=== PATIENT | female | born 1975 | race Caucasian/White ===

== ENCOUNTER → 2019-06-20 | Outpatient (CLI) | payer OTHER ==
[~2019-06-20] MED LIST: BUPROPION XL300 MG PO; FLEXERIL PO; GLUCOPHAGE500 MG PO; GLUCOSAMINE HC500 MG PO; GLUCOTROL XL2.5 MG PO; HYDROCODON-ACE1 EAC7 PO; IBUPROFEN 200200 M1 PO; LIDOPATCH1 EACH TOP; NAPROSYN250 MG PO; NEURONTIN 300300 M1 PO; NEURONTIN 300M300 M2 PO; NORVASC5 MG PO; TRAMADOL 50 MG50 MG PO; VENTOLIN HFA 1818 GM INH; WELLBUTRIN 75 M75 M1 PO
[2019-06-21 23:07] LABS: HEPATITIS B SURFACE AG Negative (Negative)
[2019-06-22 11:11] LABS: HCV QUANT BY PCR HCV Not Detected IU/mL (())
== END ==
LOC: M.LAB 09:16
PROVIDERS: Internal Medicine Gastroenterology
DX: B19.10 Unspecified viral hepatitis B without hepatic coma (principal); B19.20 Unspecified viral hepatitis C without hepatic coma

== ENCOUNTER 2019-07-09 12:52 | Inpatient (IN) | payer OTHER ==
[~2019-07-09] VITALS: Ht 172.7 cm; Wt 99.3 kg
--- NOTE | ~2019-07-09 | CON ---
[address] [address] CONSULTATION Name: ZELAYAJENI Shania Room: [address] IN M.R.#: [id number] Admission: 07/09/19 Attend Phys: Sharon Ford MD Discharge: Date of : 73 Report #: [id number] THIS REPORT FOR: //name// CC: Karl Ford DATE OF SERVICE: 07/15/2019 CHIEF COMPLAINT: Postoperative visit for amputation of left fourth toe with open wound. HISTORY OF PRESENT ILLNESS: Surgical cultures grew group B streptococcus, she is on vancomycin and ceftriaxone. Surgical pathology shows osteomyelitis of left fourth toe with clear margin. Arterial Doppler study showed triphasic waveforms to the left lower extremity without focal velocity elevation to suggest stenosis. Pain is decreased and controlled. She is partial weightbearing in a surgical shoe using a walker. She has remained afebrile, good appetite. Denies nausea or malaise. LABORATORY DATA: WBC 7.6, RBC 3.34, hemoglobin 11.2, hematocrit 30.5, platelets 270. BUN 23, creatinine 1.1, glucose 127. Albumin 2.1. Hemoglobin A1c 10.2. PHYSICAL EXAMINATION: Temperature 98.0, pulse 85, respirations 18, blood pressure 136/61. The nurse changed her bandage today, which is currently dry and clean with no bleed through or drainage. I reviewed the photograph taken and it shows red granular base with minimal slough to the distal margin. Decreased inflammation with no pallor, cyanosis or signs of acute vascular embarrassment. The patient has negative Homans' or Saucedo sign to either extremity with no popliteal tenderness, bilateral. IMPRESSION: Osteomyelitis, left fourth toe with clear resection margins and open postoperative wound, type 2 diabetes mellitus with peripheral neuropathy. PLAN: I would like the patient to be discharged pending finalization of home antibiotics and home health. I will follow up with her next Tuesday afternoon at [facility]. In the interim, she is to have her bandaged changed 3 times a week with Aquacel Ag and covered with 4 x 4 Kerlix and Chilango wrap. She is to remain partial weightbearing to the foot in a surgical shoe with walker assistance. By: 1848 [id number] Monae DPM /aaron
--- NOTE | ~2019-07-09 | CON ---
[address] [address] CONSULTATION Name: JENI ZELAYA Room: [address] IN .R.#: [id number] Admission: 07/09/19 Attend Phys: Sharon Ford MD Discharge: Date of : 73 Report #: [id number] THIS REPORT FOR: //name// CC: Karl Ford DATE OF SERVICE: 07/13/2019 CHIEF COMPLAINT: Status post amputation, left fourth toe at MTP joint with the open wound. Surgical cultures growing group B Streptococcus. She is on parenteral ceftriaxone and vancomycin with good tolerance. She has been afebrile, improved; decreased pain on oral tramadol and hydrocodone. She is partial weightbearing in a surgical shoe using a walker. Her bandage was changed today by the nurse and cleansed and repacked with Aquacel Ag and gauze. I spoke with her and she is resting comfortably. I will follow up with her tomorrow and perform a dressing change. By: 1648 [id number] Monae DPM /aaron
--- NOTE | ~2019-07-09 | CON ---
[address] [address] CONSULTATION Name: ZELAYAJENI L Room: [address] IN M.R.#: [id number] Admission: 07/09/19 Attend Phys: Sharon Ford MD Discharge: Date of : 73 Report #: [id number] THIS REPORT FOR: //name// CC: Karl Ford CHIEF COMPLAINT: Postoperative day #1 for amputation of left fourth toe due to gangrene and osteomyelitis. The wound was packed open with pending surgical soft tissue cultures and pathology. She is on parenteral vancomycin and ceftriaxone. She has been afebrile, relates moderate pain to the extremity. LABORATORY DATA: WBC 10.0, RBC 3.64, hemoglobin 12.3, hematocrit 33.6, platelets 241. BUN 15, creatinine 1.1. PHYSICAL EXAMINATION: Postoperative wound has red healthy granulation with minimal slough. The distal fourth metatarsal is visible with no necrosis or signs of bone infection. The inflammation of the dorsal and plantar foot is receding with no signs of acute vascular embarrassment. The left foot has palpable pedal pulses. IMPRESSION: Osteomyelitis, left fourth toe with postoperative wound, type 2 diabetes mellitus, resolving cellulitis. PLAN: The wound was lavaged with wound cleanser, dried and packed with Aquacel Ag and covered with gauze and Chilango bandage. The patient may bear partial weight to the foot in a surgical shoe with assistive device. Minimize ambulation, elevate foot, maximize glycemic control. Awaiting surgical cultures. By: 1617 [id number] Monae DPM /nt
[~2019-07-09 12:52] MED LIST changes: -BUPROPION XL300 MG PO; -GLUCOPHAGE500 MG PO; -GLUCOTROL XL2.5 MG PO; -HYDROCODON-ACE1 EAC7 PO; -LIDOPATCH1 EACH TOP; -NEURONTIN 300300 M1 PO; -NEURONTIN 300M300 M2 PO; -NORVASC5 MG PO; -TRAMADOL 50 MG50 MG PO; -VENTOLIN HFA 1818 GM INH; -WELLBUTRIN 75 M75 M1 PO
[2019-07-09 13:00] VITALS: BP 169/97
[2019-07-09] MEDS ORDERED: VENTOLIN HFA 1818 GM INH (13:03)
[2019-07-09] MEDS ORDERED: NEURONTIN 300M300 M2 PO (13:03)
[2019-07-09] MEDS ORDERED: NORVASC5 MG PO (13:03)
[2019-07-09 14:05] LABS: APTT 27.6 Seconds (25.0-31.3); CALCIUM 8.8 mg/dL (8.5-10.1); CREATININE 1.3 mg/dL (0.6-1.3); PROTIME 9.8 Seconds (9.20-11.50)
[2019-07-09 14:09] LABS: ALBUMIN 2.7 g/dL (3.4-5.0); TOTAL BILIRUBIN 0.9 mg/dL (<0.1-1.0); TOTAL PROTEIN 7.3 g/dL (6.4-8.2)
[2019-07-09 14:21] LABS: ABSOLUTE BASOPHILS 0.2 thou/uL (0.0-0.2); ABSOLUTE EOSINOPHILS 0.1 thou/uL (0.0-0.7); ABSOLUTE LYMPHOCYTES 1.5 thou/uL (0.8-5.3); ABSOLUTE MONOCYTES 1.2 thou/uL (0.0-1.2); ABSOLUTE NEUTROPHILS 10.4 thou/uL (1.6-8.1); BASOPHILS 1.2 %; EOSINOPHILS 0.9 %; HEMATOCRIT 39.3 % (37.0-47.0); HEMOGLOBIN 14.1 gm/dL (12.0-15.0); LYMPHOCYTES 11.4 %; MCH 33.5 pg (26.0-34.0); MCHC 35.9 g/dL (28.0-37.0); MCV 93.4 fL (80.0-100.0); MONOCYTES 8.6 %; MPV 8.4 fl. (7.2-11.1); NUCLEATED RBCS 0 /100WBC; PLATELET COUNT* 271 thou/uL (150-400); POLYS 77.9 %; RBC 4.21 mil/uL (4.20-5.00); RDW-CV 12.1 % (10.5-14.5); WBC 13.4 thou/uL (4.0-11.0)
[2019-07-09 16:28] VITALS: BP 154/68
[2019-07-09 17:00] VITALS: BP 183/93
[2019-07-09] MEDS ORDERED: WELLBUTRIN 75 M75 M1 PO (17:36)
--- NOTE | 2019-07-09 17:51 | NUR ---
ASSESSMENT COMPLETE. PT ADMITTED WITH CELLULITIS TO LEFT 4TH TOE/FOOT. PT IS ALERT AND ORIENTED X4. IV ABX GIVEN ORDERED. DR WATSON, WOUND, AND INFECTIOUS DISEASES CONSULTED. PT IS UP STANDBY ASSIST. IV FLUIDS INFUSING. SEE ASSESSMENT AND VITALS FOR OTHER DETAILS. ACCU CHECK ACHS. CALL LIGHT WITHIN REACH, WILL CONTINUE PLAN OF CARE
[2019-07-09 21:00] VITALS: BP 165/79
[2019-07-10 04:45] LABS: HEMATOCRIT 33.2 % (37.0-47.0); MCH 33.4 pg (26.0-34.0); MCHC 35.7 g/dL (28.0-37.0); MCV 93.5 fL (80.0-100.0); MPV 8.5 fl. (7.2-11.1); RBC 3.55 mil/uL (4.20-5.00); RDW-CV 12.2 % (10.5-14.5); WBC 9.2 thou/uL (4.0-11.0)
[2019-07-10 04:46] LABS: HEMOGLOBIN 11.9 gm/dL (12.0-15.0)
[2019-07-10 05:02] LABS: CALCIUM 7.8 mg/dL (8.5-10.1); POTASSIUM 3.7 mmol/L (3.5-5.1); TOTAL BILIRUBIN 0.5 mg/dL (<0.1-1.0); TOTAL PROTEIN 5.9 g/dL (6.4-8.2)
--- NOTE | 2019-07-10 06:14 | NUR ---
PATIENT SLEPT PART OF THE NIGHT. IV FLUIDS AND ANTIBIOTICS WERE GIVEN ORDERED. PATIENT WAS GIVEN PAIN MEDICINE THREE TIMES THIS SHIFT WITH SOME RELIEF. WILL CONTINUE TO MONITOR.
[2019-07-10 07:50] VITALS: BP 144/69
--- NOTE | 2019-07-10 10:32 | NUR ---
WOUND CARE NOTE: CONSULT RECEIVED FOR FOOT CELLULITIS. PATIENT PRESENTS WITH THE 4TH TOE ON THE LEFT FOOT EDEMATOUS AND PURPLE IN DISCOLORATION. TWO ULCERATIONS NOTED, MEDIALLY AND LATERALLY. FOUL ODOR NOTED. WOUNDS DRAINING BROWN/SEROUS DRAINAGE. GREGORIO-WOUND SKIN IS MACERATED. INFLAMMATION NOTED EXTENDING TOWARDS THE MIDFOOT BETWEEN THE 2-4TH METATARSAL HEADS ON THE DORSAL ASPECT. CLEANSED TOE. DRIED DRAINAGE NOTED TO THE 5TH AND THE 3RD TOES, BUT NO ULCERATIONS DETECTED. WOUNDS WERE NOT MEASURED PODIATRY PLANS TO AMPUTATE THE 4TH DIGIT TODAY. PATIENT WAS SEEN WITH PODIATRY AND ID. APPLIED DRY GAUZE AT THIS TIME.
[2019-07-10 14:28] VITALS: BP 144/69
--- NOTE | 2019-07-10 16:36 | NUR ---
SW met with pt to complete initial assessment, introduce self, and SW role. Pt alert, oriented, emotional. Pt lives at home with her significant other. Pt to discuss FMLA with her employer and possibly SW to assist with discussing completion with a doctor. SW to continue to follow to assist with safe dc planning.
--- NOTE | 2019-07-10 16:44 | NUR ---
ASSUMMED CARE OF PT AT 1045, PT ALERT AND ORIENTED, COMPLAINS OF PAIN IN LEFT FOOT, MEDICATED PER ORDER, ENCOURAGED PT TO ELEVATE LEFT LEG, PT ANXIOUS ABOUT SURGERY, ASKING MANY QUESTIONS, WANTS TO SPEAK WITH SURGEON PRIOR TO SURGERY, PT INFORMED SHE COULD TALK TO HIM IN THE PRE OP AREA, PT NPO STATUS, IV PATENT IN LEFT FA, PT UP TO BATHROOM PER WALKER, DRESSING TO LEFT FOOT DRY AND INTACT, HOURLY ROUNDING COMPLETE, TO SURGERY PER BED AT 1645.
[2019-07-10 16:59] VITALS: BP 147/68
[2019-07-10 23:41] VITALS: BP 136/66
[2019-07-11 02:06] LABS: GLYCOHEMOGLOBIN (HGB A1C) 10.2 % (4.8-5.6)
[2019-07-11 04:00] VITALS: BP 179/88
--- NOTE | 2019-07-11 05:59 | NUR ---
PT SLEPT FAIRLY WELL OVERNIGHT. TOLERATED DIET AT HS WITHOUT N/V. BULKY SURGICAL DRSG CDI TO LEFT FOOT. PT UP WITH WALKER AND SBA TO BSC TO VOID OVERNIGHT. ACCUCHECK 238, INSULIN GIVEN ORDERED. LFA IVF INFUSING PER PUMP, VANC GIVEN ORDERED-TO HAVE VANC TROUGH DRAWN 0730 ALONG WITH AM LABS. IV PAIN MED GIVEN FOR CO PAIN X1 THIS SHIFT WITH GOOD RESULT. TOES VISIBLE PINK AND WARM, +MOVEMENT AND GOOD CAP REFILL. ABLE TO USE CALL LITE AND MAKE NEEDS KNOWN, CALL LITE IN EASY REACH.
[2019-07-11 07:40] VITALS: BP 154/78
[2019-07-11 08:08] LABS: HEMATOCRIT 33.6 % (37.0-47.0); HEMOGLOBIN 12.3 gm/dL (12.0-15.0); MCH 33.9 pg (26.0-34.0); MCHC 36.8 g/dL (28.0-37.0); MCV 92.2 fL (80.0-100.0); RBC 3.64 mil/uL (4.20-5.00); RDW-CV 11.9 % (10.5-14.5)
[2019-07-11 08:18] LABS: CALCIUM 8.1 mg/dL (8.5-10.1); MAGNESIUM 1.7 mg/dL (1.8-2.4); POTASSIUM 3.9 mmol/L (3.5-5.1)
--- NOTE | 2019-07-11 11:21 | CON ---
[address] [address] CONSULTATION Name: ZELAYAJENI L Room: [address] IN M.R.#: [id number] Admission: 07/09/19 Attend Phys: Sharon Ford MD Discharge: Date of : 73 Report #: [id number] THIS REPORT FOR: //name// CC: Karl Ford DATE OF SERVICE: 07/10/2019 INFECTIOUS DISEASE CONSULTATION ATTENDING PHYSICIAN: Dr. Ford. REASON FOR EVALUATION: Left fourth toe deep seated infection, suspected osteomyelitis. HISTORY OF PRESENT ILLNESS: Chart reviewed, patient examined. This is a 43-year-old woman with history of diabetes mellitus type 2, non-insulin requiring, also polycystic ovarian syndrome, who was admitted through the Emergency Room with complaints of progressive change in color involving her fourth toe, left foot, had several week history; however, worsened over the course of the last 24 hours prior to her admission. She is experiencing fevers and chills. She notes her blood sugars have been quite elevated and did note some drainage with some malodor as well. Denied any antecedent injury, underwent evaluation. Initial blood sugar was 371. Lactic acid 1.2. Plain film concerned about some minimal gas in the soft tissue, no overt bony erosion or destruction. White count of 13.4. Venous Dopplers show no evidence of deep venous thrombosis. Arterial Doppler was otherwise unremarkable. Blood cultures are sterile thus far. She is not encephalopathic. Empirically started on therapy with vancomycin and ceftriaxone. She is tentatively planned for surgery later today with toe amputation. ALLERGIES: None known. CURRENT MEDICATIONS: Include amlodipine, ceftriaxone, glipizide, vancomycin, bupropion, gabapentin, insulin, p.r.n. analgesics and antiemetics. PAST MEDICAL HISTORY: As described above. Diabetes mellitus, history of polycystic ovarian syndrome, and previous history of cervical cancer x 2. SOCIAL HISTORY: Smokes 3/4 of a pack of cigarettes on a daily basis. Use of marijuana. Occasional ethanol. FAMILY HISTORY: Noncontributory. REVIEW OF SYSTEMS: Otherwise, unremarkable 10-point review of system with [place] [address] CONSULTATION Name: JENI ZELAYA Room: [address]#: [id number] Admission: 07/09/19 Attend Phys: Sharon Ford MD Discharge: Date of : 73 Report #: [id number] PHYSICAL EXAMINATION: GENERAL: She is alert. She is in mild distress at this point. She is lucid. VITAL SIGNS: T-max 100, more recently 98.6, pulse 94, respirations 16, blood pressure 144/69. SKIN: Warm, dry. No rashes. HEENT: Normocephalic. Extraocular muscles intact. NECK: Supple. LUNGS: Somewhat diminished, otherwise clear breath sounds. HEART: Borderline tachycardic, regular. I do not appreciate a murmur. ABDOMEN: Soft, nontender, nondistended. EXTREMITIES: Notable for fourth left toe hemorrhagic changes. There is malodor associated with it, appears to be wet gangrene consistent. GENITOURNARY: Deferred. RECTAL: Deferred. LABORATORY DATA: As described above. Electrolytes: Sodium 134, potassium is 3.7, chloride 102, bicarbonate 21, anion gap of 11, BUN and creatinine 13 and 1.0, glucose of 207. Albumin of 2.0, total protein 5.9. LFTs unremarkable. Estimated GFR 60, prealbumin of 12.7. CBC: White count of 9.2, H and H 11.9 and 33.2, platelets of 227. Imaging studies as noted above. ASSESSMENT: Left fourth toe gangrene. No evidence at this point of vascular insufficiency, cannot entirely exclude any embolic event, but I suspect this is more typical of a polymicrobial infection, initiated in superficial sites. Agree with combination therapy. PLAN: At this point, plan for surgery seems a reasonable approach. We will await culture results. Follow up postop. Was encouraged to discontinue her smoking, improve blood sugar control, and optimize her nutritional status. <ELECTRONICALLY SIGNED> By: Chintan Gomez MD 07/11/19 1121 0944 [id number] Gomez MD /nt
--- NOTE | 2019-07-11 13:53 | CON ---
[address] [address] CONSULTATION Name: NATHALIEJENI L Room: [address] IN M.R.#: [id number] Admission: 07/09/19 Attend Phys: Sharon Ford MD Discharge: Date of : 73 Report #: [id number] THIS REPORT FOR: //name// CC: Karl Ford DATE OF SERVICE: 07/10/2019 CHIEF COMPLAINT: The patient admitted for worsening infection to the left fourth toe, complicated by type 2 diabetes mellitus. She denies kate injury, but relates a blister to the lateral aspect of the toe, which she treated with a Band-Aid and then applied compression stockings for edema control. She thinks the combination of the Band-Aid and stockings may have exacerbated the blister. She has had some low-grade fevers. Denies nausea, malaise or vomiting. She has not sought outside medical treatment for this condition, and she has been placed on Neosporin and gauze or Band-Aid to the toe. She relates moderate pain to the area. She denies history of vascular surgery or intervention, currently on parenteral ceftriaxone and vancomycin with good tolerance. She has been afebrile since admission. Foot radiographs negative for bone destruction, although there is a questionable small amount of gas in the soft tissue of the fourth toe. Upon my inspection, possible transverse fracture through the proximal phalange with no displacement. Noninvasive arterial Doppler shows normal triphasic waveforms to the left lower extremity with no focal velocity elevation. LABORATORY DATA: WBC 9.2, RBC 3.55, hemoglobin 11.9, hematocrit 33.2, platelets 227. BUN 13, creatinine 1.0, glucose 207, albumin 2.0. PHYSICAL EXAMINATION: Left fourth toe is swollen and inflamed and necrotic with odor and drainage emanating from the wound at the proximal medial base of the toe with localized inflammation consistent with cellulitis. No lesions noted to the adjacent third or fifth toes. Palpable dorsalis pedis and posterior tibial pulse to the left foot. +3 nonpitting edema to the left extremity. No popliteal adenopathy or calf pain. IMPRESSION: Likely osteomyelitis with deep tissue infection, left fourth toe. PLAN: I recommend amputation of the left fourth toe. Discussed with Dr. Chintan Gomez, Dr. Ford and the wound nurse. We will keep the patient n.p.o. and plan surgical amputation later this afternoon. She is scheduled for an MRI today. <ELECTRONICALLY SIGNED> By: Robin Monae DPM 07/11/19 1353 0915 [id number] Monae DPM /aaron
--- NOTE | 2019-07-11 13:53 | OP ---
[address] [address] OPERATIVE REPORT Name: NATHALIEJENI L Room: [address] IN M.R.#: [id number] Admission: 07/09/19 Attend Phys: Sharon Ford MD Discharge: Date of : 73 Report #: [id number] THIS REPORT FOR: //name// CC: Karl Ford DATE OF SERVICE: 07/10/2019 SURGEON: Robin Monae DPM PREOPERATIVE DIAGNOSIS: Osteomyelitis with gangrene, left fourth toe. PROCEDURES PERFORMED: 1. Amputation, left fourth toe without a primary closure. 2. Incision and drainage, left foot. 3. Wound debridement, joint muscle and tendon level, left foot. ANESTHESIA: General LMA. INJECTABLES: 30 mL of a 1:1 mixture of 0.5% Marcaine plain and 1% lidocaine plain. HEMOSTASIS: Left ankle pneumatic tourniquet at 250 mmHg. SPECIMENS: Left fourth toe. CULTURES: Soft tissue, left fourth toe, aerobic and anaerobic. ESTIMATED BLOOD LOSS: Minimal. COMPLICATIONS: None. DESCRIPTION OF PROCEDURE: The patient was brought to the OR and placed on the table supine with induction of general LMA anesthesia. A well-padded left ankle pneumatic tourniquet was placed. A local anesthetic block was given, and extremity prepped and draped aseptically. The tourniquet was inflated and a #15 blade was used to create a circumferential incision around the base of the left fourth toe, which was disarticulated from the metatarsophalangeal joint. The toe was brown, soft and necrotic with malodor and serous drainage on her bandage. Once the toe was disarticulated, there was infected tissue surrounding the metatarsophalangeal joint and distal fourth metatarsal head. The metatarsal head had a normal cartilage appearance with no necrosis or signs of bone infection. I debrided the surrounding soft tissue with Metzenbaum scissors to remove flexor and extensor tendons, subcutaneous fat and joint capsule. Electrocautery was used for hemostasis. The metatarsal was not debrided. The wound was flushed with sterile saline with bacitracin irrigant [place] [address] OPERATIVE REPORT Name: JENI ZELAYA Shania Room: [address]#: [id number] Admission: 07/09/19 Attend Phys: Sharon Ford MD Discharge: Date of : 73 Report #: [id number] wound was packed with Aquacel Ag and covered with more Aquacel Ag, fluffs, ABDs and Kerlix gauze. The tourniquet was deflated and the patient left the OR with no complications. <ELECTRONICALLY SIGNED> By: Robin Monae DPM 07/11/19 1353 0731 [id number] Monae DPM /aaron
[2019-07-11 14:01] LABS: CALCIUM 7.9 mg/dL (8.5-10.1); CREATININE 1.1 mg/dL (0.6-1.3)
[2019-07-11 16:00] VITALS: BP 148/74
--- NOTE | 2019-07-11 17:19 | NUR ---
PT A&OX4 VSS. PT RESTS IN BED WITH CALL LIGHT IN REACH. HYDRCODONE ADMINISTERED TO ADDRESS PT C/O PAIN. SURGICAL DRESSING CHANGED BY DR Randolph WATSON. PARTIAL WEIGHT BEARING TO L FOOT. PT TO WEAR SX SHOE WHEN AMBULATING. IV TO LFA DC'D D/T INFILTRATION. NEW IV STARTED TO L HAND, LINE PATENT AND SALINE LOCKED. PT/OT ORDERED TO EVAL AND TREAT. MGNESIUM ADMINISTERED BID TO ADDRESS LAB VALUES.
[2019-07-11 19:45] VITALS: BP 138/64
[2019-07-12 05:15] LABS: HEMATOCRIT 31.7 % (37.0-47.0); HEMOGLOBIN 11.7 gm/dL (12.0-15.0); MCH 33.7 pg (26.0-34.0); MCHC 36.8 g/dL (28.0-37.0); MCV 91.6 fL (80.0-100.0); MPV 8.3 fl. (7.2-11.1); RBC 3.46 mil/uL (4.20-5.00); RDW-CV 12.4 % (10.5-14.5); WBC 9.7 thou/uL (4.0-11.0)
[2019-07-12 05:30] LABS: CALCIUM 8.1 mg/dL (8.5-10.1); MAGNESIUM 1.8 mg/dL (1.8-2.4); POTASSIUM 3.4 mmol/L (3.5-5.1); TOTAL BILIRUBIN 0.5 mg/dL (<0.1-1.0)
--- NOTE | 2019-07-12 06:59 | NUR ---
PT SLEPT WELL OVERNIGHT. RECEIVING PO PAIN MEDS FOR CO L FOOT PAIN WITH GOOD RELIEF ALTERNATING HYDROCODONE AND TRAMADOL. LHAND SL, ABX GIVEN ORDERED. UP WITH ASSIST TO BSC TO VOID, PARTIAL WB TO L FOOT. AM LABS DRAWN. DRSG TO L FOOT CDI. HS ACCUCHECK 192, INSULIN GIVEN WITH SNACK. K 3.4 THIS MORNING, 40MEQ GIVEN PER PROTOCOL. ABLE TO USE CALL LITE AND MAKE NEEDS KNOWN, CALL LITE IN EASY REACH.
[2019-07-12 08:30] VITALS: BP 143/76
[2019-07-12 15:30] VITALS: BP 139/81
[2019-07-12 20:30] VITALS: BP 144/77
--- NOTE | 2019-07-12 20:31 | NUR ---
PATIENT REMAINED ALERT AND ORIENTED THROUGHOUT SHIFT. PATIENT USING WALKER, ASSISTANCE, AND GAIT BELT AND NOT BEARING WEIGHT TO L FOOT TOES WHEN UP TO COMMODE OR CHAIR. ALL SAFETY MEASURES MAINTAINED. PATIENT DENIES FURTHER NEEDS AT THIS TIME.
--- NOTE | 2019-07-13 05:20 | NUR ---
PATIENT SLEPT MOST OF THE NIGHT. DRESSING TO R FOOT REMAINS INTACT. IV ANTIBIOTICS WERE GIVEN ORDERED. PAIN MEDS WERE GIVEN NEEDED. WILL CONTINUE TO MONITOR.
[2019-07-13 08:00] VITALS: BP 139/79
--- NOTE | 2019-07-13 11:56 | NUR ---
SW met with pt to follow up on any assistance with FMLA and discuss possible needs at dc such as IV abx, knee scooter, HH services. Pt working with employer and with Dr Monae's office regarding FMLA. Pt plans to discuss DME agencies and HH agencies with her family and friends and then provide pt preferences to SW/CM. SW to continue to follow to assist with safe dc planning.
--- NOTE | 2019-07-13 14:43 | NUR ---
RIGHT BASILOIC VESSELL ACCESSED FOR SINGLE LUMEN PICC. LINE PRE-TRIMMED TO 41 CM AND ADVANCED TO THE ZERO YUE WITH NO RESISTANCE MET. UPPER ARM CIRCUMFERENCE ABOVE INSERTION SITE = 12". SHERLOCK AND 3CG COMNFIRMATION OF TIP TERMINATION AT THE CAVCOATRIAL JUNCTION APPRECIATED. STYLET REMOVED, LINE FLUSHED AND INSERTION SITE DRESSED. REPORT GIVEN TO Art LYNN RN.
[2019-07-13 16:00] VITALS: BP 148/81
[2019-07-13 19:45] VITALS: BP 148/75
--- NOTE | 2019-07-13 20:12 | NUR ---
Patient remained alert and oriented throughout shift. Patient ambulating with stand by assitance, walker,and gait belt. Patient tolerating PICC line well. All safety measures maintained. Patient denies further needs at this time.
--- NOTE | 2019-07-14 04:24 | NUR ---
ASSUMED CARE FROM DAY SHIFT PT RESTING IN BED PAIN CONTROLLED WITH PO MEEICATION STATED BY PT, LEFT FOOT WITH DRY DRESING AND YANETH WRAP , PT UP TO BSC WITH ASSITANCE TOLERATING WELL. RESTED WELL THROUGHOUT HOURLY ROUNDS WILL CONTINUE WITH CURRENT PLAN OF CARE, BED ALARM ON FOR SAFETY.
[2019-07-14 04:39] LABS: HEMATOCRIT 30.5 % (37.0-47.0); HEMOGLOBIN 11.2 gm/dL (12.0-15.0); MCH 33.4 pg (26.0-34.0); MCHC 36.6 g/dL (28.0-37.0); MCV 91.4 fL (80.0-100.0); MPV 7.6 fl. (7.2-11.1); RBC 3.34 mil/uL (4.20-5.00); RDW-CV 12.2 % (10.5-14.5); WBC 7.6 thou/uL (4.0-11.0)
[2019-07-14 05:32] LABS: ALBUMIN 2.1 g/dL (3.4-5.0); CALCIUM 8.7 mg/dL (8.5-10.1); CREATININE 1.1 mg/dL (0.6-1.3); MAGNESIUM 1.9 mg/dL (1.8-2.4); POTASSIUM 3.5 mmol/L (3.5-5.1); TOTAL BILIRUBIN 0.2 mg/dL (<0.1-1.0); TOTAL PROTEIN 6.3 g/dL (6.4-8.2)
[2019-07-14 07:20] VITALS: BP 134/69
--- NOTE | 2019-07-14 10:07 | PATH ---
[address] [address] PATHOLOGY RPT PROCEDURE Name: JENI ZELAYA Room: [address] IN M.R.#: [id number] Admission: 07/09/19 Date of : 73 Discharge: Report #: [id number] Path Case #: [id number] [facility] Accession Number: [id number] . 01 Material submitted: . toe - LEFT 4TH TOE. Modifiers: left, fourth . 01 Clinical history: . Osteomyelitis left foot . 02 Diagnosis: Toe, left fourth, amputation: - Skin with focal ulceration and necrosis. - Underlying bone with acute osteomyelitis. - Margin of excision without evidence of acute osteomyelitis. . (SKM:mml; 07/13/2019) QLM 07/13/2019 1333 Local . 02 Electronically signed: . Tima Man MD, Pathologist NPI- [id number] . 01 Gross description: . The specimen is received in formalin, labeled "Jeni Zelaya, left fourth toe". Received is an amputated digit measuring 4.8 x 2.5 x 2.4 cm in greatest dimensions. The bone margin is smooth and concave in appearance, consistent with disarticulation. The bone and soft tissue margins are inked black. The nail is present and it has a pale woods slightly thickened appearance. The dorsal aspect of the specimen proximal to the nail displays a poorly circumscribed, irregular in contour, necrotic-appearing and timmons-woods lesion measuring 2.8 x 1.8 cm, which grossly abuts the soft tissue margin. A full-thickness longitudinal cross-section is submitted from proximal to distal aspects in cassettes A1 through A3, following decalcification. (CAA; 07/12/2019) QAC/QA 07/13/2019 1330 Local . 02 Pathologist provided ICD-10: L97.529, I96, M86.172 . 02 CPT . 296842, 979735 Specimen Comment: A courtesy copy of this report has been sent to [phone] Specimen Comment: [phone], Specimen Comment: Report sent to ,DR SAXENA / DR GOMEZ Performed at: [address] [place] [address] PATHOLOGY RPT PROCEDURE Name: JENI ZELAYA Room: [address] IN ..#: [id number] Admission: 07/09/19 Date of : 73 Discharge: Report #: [id number] Path Case #: [id number] [facility] [place] [address], [place], [place] [id number] MD Kwame Reid MD Phone: [phone] Performed at: 02 [facility] [address], [place] [id number] MD Earnest Gutierrez MD Phone: [phone]
--- NOTE | 2019-07-14 16:35 | NUR ---
PATIENT UP WITH USE OF WALKER AND PWB TO LEFT FOOT, PATIENT REFUSING TO WEAR SURGICAL SHOE WHEN OUT OF BED; EDUCATION GIVEN. IV SL, SCHED ABX INFUSED ORDERED TO RIGHT UPPER ARM PICC. PICC FLUSHING WITHOUT DIFFICULTY AND GOOD BLOOD RETURN NOTED. LIDODERM PATCH PLACED TO LEFT FOOT UNDER DRESSING. DRESSING TO LEFT FOOT CHANGED PER PROTOCOL, DR. WATSON NOTIFIED OF APPEARANCE AND NO NEW ORDERS RECEIVED. PRN HYDROCODONE GIVEN X 1 THIS SHIFT, SCHED TRAMADOL GIVEN ORDERED. INSULIN GIVEN WITH MEALS WHEN REQUIRED. AWAITING CULTURE RESULTS.
[2019-07-14 19:30] VITALS: BP 146/64
--- NOTE | 2019-07-15 04:10 | NUR ---
ASSUMED CARE FROM DAY SHIFT PT UP IN CHAIR STATES SHE HAD A GOOD DAY , ASSESSMENT COMPLETED AND CHART DISCUSS CURRENT PLAN OF CARE AND AGREEABLE. DRESSING REMAIN DRY AND INTACT THIS SHIFT , PT RESTED WELL THROUGHOUT HOURLY ROUNDS.
[2019-07-15 07:15] VITALS: BP 165/95
[2019-07-15 12:29] LABS: URINE BILIRUBIN NEGATIVE (Negative); URINE BLOOD NEGATIVE (Negative); URINE CLARITY CLEAR; URINE COLOR YELLOW; URINE GLUCOSE-RANDOM NEGATIVE (Negative); URINE KETONES NEGATIVE (Negative); URINE LEUKOCYTES NEGATIVE (Negative); URINE NITRITE NEGATIVE (Negative); URINE PROTEIN 2+ (Negative); URINE SPECIFIC GRAVITY 1.015 (1.005-1.030); URINE UROBILINOGEN 0.2 E.U./dl (0.2-1.0)
[2019-07-15 12:49] LABS: BACTERIA 1-9 Few /HPF (None Seen); CASTS None Seen /LPF (None Seen); CRYSTALS None Seen /LPF (None Seen); SQUAMOUS 0-3 Few /LPF (0-3); URINE RBC 0-2 Rare /HPF (0-2); URINE WBC 0-5 Rare /HPF (0-5)
--- NOTE | 2019-07-15 16:26 | NUR ---
PATIENT UP AND AMBULATING WITH PT THIS AFTERNOON. PRN HYDROCODONE GIVEN PER MAR ORDERS, GOOD RELIEF NOTED. WOUND PHOTO TAKEN OF LEFT FOOT PER PROTOCOL AND DRESSING CHANGED. SCHED ABX INFUSED ORDERED. INSULIN GIVEN WITH MEALS WHEN REQUIRED.
[2019-07-15 17:17] VITALS: BP 136/61
[2019-07-15 23:02] VITALS: BP 143/77
[2019-07-16 07:45] VITALS: BP 147/85
[2019-07-16] MEDS ORDERED: GLUCOTROL XL2.5 MG PO (09:59)
[2019-07-16] MEDS ORDERED: GLUCOPHAGE500 MG PO (09:59)
[2019-07-16] MEDS ORDERED: HYDROCODON-ACE1 EAC7 PO (09:59)
[2019-07-16] MEDS ORDERED: NEURONTIN 300300 M1 PO (09:59)
[2019-07-16] MEDS ORDERED: LIDOPATCH1 EACH TOP (09:59)
[2019-07-16] MEDS ORDERED: TRAMADOL 50 MG50 MG PO (09:59)
--- NOTE | 2019-07-16 14:42 | NUR ---
WOUND NURSE: PATIENT SEEN BY THIS NURSE SHE MAY BE GETTING DISCHARGED FROM ACUTE CARE TODAY. PER DOCTOR WALTER, DRESSING COVERING LEFT FOOT, 4TH DIGIT AMPUTATION TO BE CHANGED 3X/WEEK AND PATIENT TO BE SCHEDULED IN [facility] WHICH WAS DONE FOR 07/25 AT 1400. PATIENT WAS INSTRUCTED ACCORDINGLY WITH GOOD UNDERSTANDING ACHIEVED. PATIENT'S DRESSING WAS ALREADY CHANGED TODAY BY THE STAFF NURSE. PATIENT INFORMED OF APPT SCHEDULED AT [facility].
[2019-07-16 15:41] VITALS: BP 147/85
--- NOTE | 2019-07-16 15:47 | NUR ---
Pt to dc home with significant other today and mother support if needed. SW spoke with pt about dc needs: iv abx, knee scooter, HH services, diabetic supplies. SW arranged through pt preferences of [facility] for iv abx and [facility] for HH services. Pt insurance does not cover knee scooter; pt plans to find one or rent one on her own whenever she plans to return to work. Pt has RW at home that she is able to utilize around the home safely.
[2019-07-16 16:02] VITALS: BP 147/85
[2019-07-16] MEDS ORDERED: BUPROPION XL300 MG PO (16:21)
[2019-07-16 16:27] VITALS: BP 147/85
[2019-07-16 16:41] VITALS: BP 147/85
[2019-07-16 17:28] VITALS: BP 147/85
--- NOTE | 2019-07-16 18:02 | NUR ---
Patient alert and oriented x4. Patient ambulating with assistance, walker, and shoe. Weight bearing limitations maintained throughout shift. Patient discharging with PICC line and home health. Discharge education provided. Patient denies further questions at this time. All safety measures maintained. Patient given prescriptions and discharge paperwork. Dressing C/D/I. Wound care pictures taken during dressing change.
== END 2019-07-16 17:34 | disposition home health service (06) | DRG 853 ==
LOC: M.ERS 12:52 → M.TBA-ER 15:06 → M.3W 15:06
PROVIDERS: Internal Medicine; Nurse Practitioner Family; ADMIT Internal Medicine
PROC: 0Y6N0Z7 Detachment at Left Foot, Complete 4th Ray, Open Approach (ICD-10-PCS; principal; 2019-07-10)
PROC: 05HY33Z Insertion of Infusion Device into Upper Vein, Percutaneous Approach (ICD-10-PCS; 2019-07-13)
DX: A41.9 Sepsis, unspecified organism (principal); E43 Unspecified severe protein-calorie malnutrition; E11.52 Type 2 diabetes mellitus with diabetic peripheral angiopathy with gangrene; M86.8X7 Other osteomyelitis, ankle and foot; E87.2 Acidosis; L03.032 Cellulitis of left toe; E11.65 Type 2 diabetes mellitus with hyperglycemia; F17.210 Nicotine dependence, cigarettes, uncomplicated; E11.69 Type 2 diabetes mellitus with other specified complication; B95.1 Streptococcus, group B, as the cause of diseases classified elsewhere; E11.42 Type 2 diabetes mellitus with diabetic polyneuropathy; E11.621 Type 2 diabetes mellitus with foot ulcer; B96.89 Other specified bacterial agents as the cause of diseases classified elsewhere; L97.529 Non-pressure chronic ulcer of other part of left foot with unspecified severity; E87.6 Hypokalemia; Z85.41 Personal history of malignant neoplasm of cervix uteri; Z79.899 Other long term (current) drug therapy; Z68.33 Body mass index [BMI] 33.0-33.9, adult

== ENCOUNTER → 2019-07-25 | Outpatient (CLI) | payer OTHER ==
[~2019-07-25] MED LIST changes: +BUPROPION XL300 MG PO; +GLUCOPHAGE500 MG PO; +GLUCOTROL XL2.5 MG PO; +HYDROCODON-ACE1 EAC7 PO; +LIDOPATCH1 EACH TOP; +NEURONTIN 300300 M1 PO; +NEURONTIN 300M300 M2 PO; +NORVASC5 MG PO; +TRAMADOL 50 MG50 MG PO; +VENTOLIN HFA 1818 GM INH; +WELLBUTRIN 75 M75 M1 PO
--- NOTE | 2019-07-26 12:18 | CON ---
[address] [address] CONSULTATION Name: NATHALIEJENI L Room: [facility]#: [id number] Admission: 07/25/19 Attend Phys: Robin Monae DPM Discharge: Date of : 73 Report #: [id number] THIS REPORT FOR: //name// CC: Robin Woodson Jason DATE OF SERVICE: 07/25/2019 INFECTIOUS DISEASE CONSULTATION ATTENDING PHYSICIAN: Robin Monae DPM HISTORY OF PRESENT ILLNESS: The patient returns for followup having undergone left fourth toe amputation due to chronic osteomyelitis. She was left with an open wound with exposed cartilage overlying the fourth metatarsal head. She has been on therapy with ceftriaxone since her discharge. She has completed roughly 2-week course of treatment. On evaluation, she has intermittent pain that she describes. Today, she denies any systemic illness. No fevers or chills. Appetite has been good. On inspection, the wound does show evidence of ongoing exposure to the cartilage. The overall degree of inflammation has decreased significantly. There is no overt odor or purulence at this point. Review of the culture, isolation of group B strep, the main pathogen. ASSESSMENT AND PLAN: Acute osteomyelitis complicated by toe amputation. She will continue ceftriaxone as prescribed at least additional couple of weeks. We will reevaluate on her return on next visit. Continue weekly labs. Wound care per Dr. Monae. He was discussing possibility of a wound VAC and offloading. Optimize nutritional status. <ELECTRONICALLY SIGNED> By: Chintan Gomez MD 07/26/19 1218 1726 [id number] Gomez MD /nt
== END ==
LOC: M.WC 14:00
DX: T87.89 Other complications of amputation stump (principal); E11.621 Type 2 diabetes mellitus with foot ulcer; L97.522 Non-pressure chronic ulcer of other part of left foot with fat layer exposed; E11.42 Type 2 diabetes mellitus with diabetic polyneuropathy; E43 Unspecified severe protein-calorie malnutrition; I87.2 Venous insufficiency (chronic) (peripheral); F17.200 Nicotine dependence, unspecified, uncomplicated; Z85.41 Personal history of malignant neoplasm of cervix uteri; Y83.5 Amputation of limb(s) as the cause of abnormal reaction of the patient, or of later complication, without mention of misadventure at the time of the procedure

== ENCOUNTER → 2019-08-01 | Outpatient (CLI) | payer OTHER ==
--- NOTE | 2019-08-02 06:25 | CON ---
[address] [address] CONSULTATION Name: FAWAD ZELAYAPaulo Jauregui Room: [facility] Rich[facility]iles#: [id number] Admission: 08/01/19 Attend Phys: Robin Monae DPM Discharge: Date of : 73 Report #: [id number] THIS REPORT FOR: //name// CC: Robin Thomson DATE OF SERVICE: 08/01/2019 INFECTIOUS DISEASE CONSULTATION ATTENDING PHYSICIAN: Robin Nguyen DPM HISTORY OF PRESENT ILLNESS: She is here for followup of chronic osteomyelitis, status post left fourth toe amputation with disarticulation at the metatarsophalangeal joint. The patient returns in followup. She continues on parenteral therapy with ceftriaxone with formation of Streptococcus in operative culture. She denies significant amount of pain associated with it. On examination, the wound still shows evidence of exposed cartilage overlying the fourth metatarsal head. There is minimal surface inflammation at this point. On questioning, she denies any particular systemic illness. Appetite has generally been good. No fevers. Denies significant GI-related complaints. ASSESSMENT AND PLAN: Chronic osteomyelitis. At this point, I think it is reasonable to continue the antibiotics and preferred to have coverage of the hard tissue with some soft tissue. At this point, there is no evidence of infection. We may transition to oral antibiotics in the next couple of weeks. We will see her in 2 weeks. We will continue weekly labs. <ELECTRONICALLY SIGNED> By: Chintan Gomez MD 08/02/19 0625 2043 [id number] Kendall Gomez MD /nt
== END ==
LOC: M.WC 05:46
DX: T87.89 Other complications of amputation stump (principal); E11.621 Type 2 diabetes mellitus with foot ulcer; L97.522 Non-pressure chronic ulcer of other part of left foot with fat layer exposed; E11.42 Type 2 diabetes mellitus with diabetic polyneuropathy; E43 Unspecified severe protein-calorie malnutrition; I87.2 Venous insufficiency (chronic) (peripheral); F17.200 Nicotine dependence, unspecified, uncomplicated; Z85.41 Personal history of malignant neoplasm of cervix uteri; Y83.5 Amputation of limb(s) as the cause of abnormal reaction of the patient, or of later complication, without mention of misadventure at the time of the procedure

== ENCOUNTER → 2019-08-08 | Outpatient (CLI) | payer OTHER ==
--- NOTE | 2019-08-09 12:16 | CON ---
[address] [address] CONSULTATION Name: FAWAD ZELAYAPaulo Jauregui Room: [facility] ARTUR VillanuevaMiles#: [id number] Admission: 08/08/19 Attend Phys: Robin Monae DPM Discharge: Date of : 73 Report #: [id number] THIS REPORT FOR: //name// CC: Robin Thomson DATE OF SERVICE: 08/08/2019 INFECTIOUS DISEASE CONSULTATION ATTENDING PHYSICIAN: Robin Monae DPM HISTORY OF PRESENT ILLNESS: The patient returns today in followup, ongoing treatment for chronic osteomyelitis involving the left fourth toe. She is post-amputation at the base. On examination, she still has exposed hard tissue including cartilage I think related to the fourth metatarsal head. She has had a moderate degree of pain that persists on evaluation, perhaps slightly improved overall in terms of degree of inflammation. On questioning, she notes she has been having some difficulty with nausea and vomiting, elevated blood sugars. This was evaluated and overall, it seems to have improved. It is not clear that this is due to an adverse drug effect. She has been on ceftriaxone last few weeks with culture-proven group B strep. ASSESSMENT AND PLAN: At this point, we would extend the ceftriaxone. Did ask Dr. Monae to reculture this site just to clarify there is no new organisms maybe involved in either colonization and/or infection. We will see her back in 1 week. <ELECTRONICALLY SIGNED> By: Chintan Gomez MD 08/09/19 1216 0832 [id number] Kendall Gomez MD /nt
== END ==
LOC: M.WC 04:01
DX: T87.89 Other complications of amputation stump (principal); E11.621 Type 2 diabetes mellitus with foot ulcer; L97.522 Non-pressure chronic ulcer of other part of left foot with fat layer exposed; E11.40 Type 2 diabetes mellitus with diabetic neuropathy, unspecified; I87.2 Venous insufficiency (chronic) (peripheral); E11.21 Type 2 diabetes mellitus with diabetic nephropathy; F17.200 Nicotine dependence, unspecified, uncomplicated; Z85.41 Personal history of malignant neoplasm of cervix uteri; Y83.5 Amputation of limb(s) as the cause of abnormal reaction of the patient, or of later complication, without mention of misadventure at the time of the procedure

== ENCOUNTER → 2019-08-15 | Outpatient (CLI) | payer OTHER ==
--- NOTE | 2019-08-16 12:06 | CON ---
[address] [address] CONSULTATION Name: ZELAYAJENI L Room: [facility].#: [id number] Admission: 08/15/19 Attend Phys: Robin Monae DPM Discharge: Date of : 73 Report #: [id number] THIS REPORT FOR: //name// CC: Robin Thomson DATE OF SERVICE: 08/15/2019 INFECTIOUS DISEASE CONSULTATION ATTENDING PHYSICIAN: Robin Monae DPM She returns today in followup [facility]. Followup ____ osteomyelitis involving the 4th left toe post-amputation at the metatarsophalangeal joint. She has had a number of issues over the course of the last couple of weeks, primarily involving nausea, vomiting. This is felt to be medicine related. She had complication of some renal failure, although that has improved based on more recent lab, it is in the normal range, also elevated liver function test, again later corrected as well. She has been on ceftriaxone for a number of weeks. She attributes signs and symptoms to increase in her metformin dose and then change to the slow release. On inspection of the wound, she still has exposed cartilage associated with the metatarsal head. Overall, degree of inflammation is minimal. She had just initiated a wound VAC within the last few days. ASSESSMENT AND PLAN: Chronic osteomyelitis. At this point, we would extend the antibiotics and would favor having her on therapy, certainly until the cartilage can be covered, utilize the wound VAC. We will see her with Dr. Monae next week. <ELECTRONICALLY SIGNED> By: Chintan Gomez MD 08/16/19 1206 0612 [id number] Gomez MD /nt
== END ==
LOC: M.WC 05:15
DX: T87.89 Other complications of amputation stump (principal); E11.621 Type 2 diabetes mellitus with foot ulcer; L97.522 Non-pressure chronic ulcer of other part of left foot with fat layer exposed; E11.21 Type 2 diabetes mellitus with diabetic nephropathy; E11.40 Type 2 diabetes mellitus with diabetic neuropathy, unspecified; E43 Unspecified severe protein-calorie malnutrition; I87.2 Venous insufficiency (chronic) (peripheral); F17.200 Nicotine dependence, unspecified, uncomplicated; Z85.41 Personal history of malignant neoplasm of cervix uteri; Y83.5 Amputation of limb(s) as the cause of abnormal reaction of the patient, or of later complication, without mention of misadventure at the time of the procedure

== ENCOUNTER → 2019-08-31 | Outpatient (CLI) | payer OTHER ==
[~2019-08-31] MED LIST changes: +AMOXICILLI400 MG/5 M PO; +ASA81BEC PO; +CEFDINIR300 MG PO; +HUMALOG100 UNIT/1 SUBQ; +LANTUS SUBQ; +LASIX 40 MG TAB40 MG PO; +PRINIVIL5 MG PO; +PROTONIX40 M2 PO
--- NOTE | 2019-09-01 07:39 | CON ---
[address] [address] CONSULTATION Name: NATHALIEJENI L Room: [facility]#: [id number] Admission: 08/31/19 Attend Phys: Kwame Livingston, Discharge: Date of : 73 Report #: [id number] THIS REPORT FOR: //name// CC: Karl Livingston DATE OF SERVICE: 08/31/2019 ATTENDING PHYSICIAN: Dr. Kwame Livingston. REASON FOR EVALUATION: Followup left foot, specifically fourth toe chronic osteomyelitis complicated by residual wound. HISTORY OF PRESENT ILLNESS: Chart reviewed, patient examined. The patient returns today in followup having had the toe amputation in early July. The operative culture had growth of group B strep, had been on extended period of ceftriaxone. It is really in the last 3 weeks, she has had issues with nausea, emesis. There was some concern about adverse drug effect due to the metformin that was discontinued. Overall, she is somewhat better. In retrospect, thinks may have been some sort of a viral etiology. She denies significant amount of pain and discomfort associated with the foot at this point. PHYSICAL EXAMINATION: On examination, there is still exposed, I believe his bone, at the distal tip of the fourth metatarsal head. There is really minimal inflammation noted at the margins. The wound is clean without evidence of any devitalized tissue. There is no odor, no purulence. ASSESSMENT AND PLAN: Chronic osteomyelitis. At this point, I think it is reasonable to transition to oral antibiotics or switch to amoxicillin, would favor having coverage until the hard tissue was covered by soft tissue. We will see her in followup in 1 week, at this point likely remove the PICC line. <ELECTRONICALLY SIGNED> By: Chintan Gomez MD 09/01/19 0739 1113 [id number] Gomez MD /nt
== END ==
LOC: M.WC 04:49
DX: T87.89 Other complications of amputation stump (principal); E11.621 Type 2 diabetes mellitus with foot ulcer; L97.526 Non-pressure chronic ulcer of other part of left foot with bone involvement without evidence of necrosis; E11.40 Type 2 diabetes mellitus with diabetic neuropathy, unspecified; E43 Unspecified severe protein-calorie malnutrition; I87.2 Venous insufficiency (chronic) (peripheral); F17.200 Nicotine dependence, unspecified, uncomplicated; Z85.41 Personal history of malignant neoplasm of cervix uteri; Y83.5 Amputation of limb(s) as the cause of abnormal reaction of the patient, or of later complication, without mention of misadventure at the time of the procedure

== ENCOUNTER 2019-09-05 12:30 | Inpatient (IN) | payer OTHER ==
[~2019-09-05] VITALS: Ht 172.7 cm; Wt 102.1 kg
[~2019-09-05 12:30] MED LIST changes: -AMOXICILLI400 MG/5 M PO; -ASA81BEC PO; -CEFDINIR300 MG PO; -HUMALOG100 UNIT/1 SUBQ; -LANTUS SUBQ; -LASIX 40 MG TAB40 MG PO; -PRINIVIL5 MG PO; -PROTONIX40 M2 PO
[2019-09-05 12:35] VITALS: BP 161/91
[2019-09-05] MEDS ORDERED: AMOXICILLI400 MG/5 M PO (12:40)
[2019-09-05 13:40] LABS: ABSOLUTE EOSINOPHILS 0.2 thou/uL (0.0-0.7); ABSOLUTE LYMPHOCYTES 1.2 thou/uL (0.8-5.3); ABSOLUTE MONOCYTES 0.9 thou/uL (0.0-1.2); ABSOLUTE NEUTROPHILS 4.8 thou/uL (1.6-8.1); BASOPHILS 0.6 %; EOSINOPHILS 2.4 %; HEMATOCRIT 31.8 % (37.0-47.0); LYMPHOCYTES 16.6 %; MCH 30.3 pg (26.0-34.0); MCHC 34.5 g/dL (28.0-37.0); MCV 87.8 fL (80.0-100.0); MONOCYTES 13.3 %; MPV 7.7 fl. (7.2-11.1); NUCLEATED RBCS 0 /100WBC; PLATELET COUNT* 454 thou/uL (150-400); POLYS 67.1 %; RBC 3.62 mil/uL (4.20-5.00); RDW-CV 13.8 % (10.5-14.5); WBC 7.1 thou/uL (4.0-11.0)
[2019-09-05 13:50] LABS: CALCIUM 8.6 mg/dL (8.5-10.1); CREATININE 1.3 mg/dL (0.6-1.3); POTASSIUM 4.4 mmol/L (3.5-5.1)
[2019-09-05 14:01] LABS: ALBUMIN 2.6 g/dL (3.4-5.0); APTT 26.2 Seconds (25.0-31.3); INR 1.1; PROTIME 11.1 Seconds (9.20-11.50); TOTAL BILIRUBIN 0.3 mg/dL (<0.1-1.0); TOTAL PROTEIN 7.1 g/dL (6.4-8.2)
[2019-09-05 19:45] VITALS: BP 150/88
[2019-09-05 20:11] VITALS: BP 159/81
[2019-09-06] VITALS: BP 155/91
[2019-09-06 04:00] VITALS: BP 111/54; BP 158/94
--- NOTE | 2019-09-06 05:04 | NUR ---
PT ADMITTED TO FLOOR AT 1945. C/O SOA AND PAIN NOTED BY PT. PT DID RECIEVE PARTIAL RELIEF OF PAIN FROM PRN PAIN MEDICATION AND RELIEF OF SOA WITH USE OF O2 MASK. ONCE RELIEF WAS MET WITH SOA CHANGED BACK TO NC AND MAINTAINED O2 SATS >90%. PT HAS UPPER RIGHT ARM PICC THAT WILL FLUSH BUT NOT DRAW, PT REFUSED AM LABS IN HOPES OF FIXING PICC TO DRAW FROM. PT IS CURRENTLY ASLEEP WITH BED ALARM ON AND CALL LIGHT WITHIN REACH.
--- NOTE | 2019-09-06 07:15 | NUR ---
CHANGE OF SHIFT, BEDSIDE REPORT GIVEN PATIENT SEEN AT BEDSIDE, IN BED RESTING ASSUMED PATIENT CARE
[2019-09-06 07:48] LABS: ABSOLUTE BASOPHILS 0.1 thou/uL (0.0-0.2); ABSOLUTE EOSINOPHILS 0.3 thou/uL (0.0-0.7); ABSOLUTE LYMPHOCYTES 1.4 thou/uL (0.8-5.3); ABSOLUTE MONOCYTES 1.1 thou/uL (0.0-1.2); ABSOLUTE NEUTROPHILS 4.2 thou/uL (1.6-8.1); BASOPHILS 0.9 %; EOSINOPHILS 3.7 %; HEMATOCRIT 30.9 % (37.0-47.0); HEMOGLOBIN 10.5 gm/dL (12.0-15.0); MCH 29.7 pg (26.0-34.0); MCHC 34.1 g/dL (28.0-37.0); MPV 7.7 fl. (7.2-11.1); NUCLEATED RBCS 0 /100WBC; PLATELET COUNT* 414 thou/uL (150-400); POLYS 59.4 %; RBC 3.55 mil/uL (4.20-5.00)
[2019-09-06 08:00] VITALS: BP 159/80
[2019-09-06 08:02] LABS: ALBUMIN 2.4 g/dL (3.4-5.0); CALCIUM 8.2 mg/dL (8.5-10.1); CREATININE 1.1 mg/dL (0.6-1.3); TOTAL BILIRUBIN 0.4 mg/dL (<0.1-1.0); TOTAL PROTEIN 6.6 g/dL (6.4-8.2)
[2019-09-06 12:15] VITALS: BP 168/91
--- NOTE | 2019-09-06 12:32 | EKG ---
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: TONI : 1975 Requested By: Roc Ellis Order Number: [id number] MD: Byron Marks Measurements Intervals [place] Rate: 108 P: 44 [place]: 158 QRS: 19 QRSD: 88 T: 46 QT: 357 QTc: 479 Interpretive Statements Sinus tachycardia Rare pvc Left atrial enlargement Borderline T wave abnormalities Borderline prolonged QT interval No previous ECG available for comparison Electronically Signed On 09-06-2019 12:31:58 HEEL CEMENTER MACHINE by Byron Marks [email or web address] <ELECTRONICALLY SIGNED> By: Byron Marks MD, [facility] 09/06/19 1231 1306 130 Byron Marks MD, FACC /EPI
--- NOTE | 2019-09-06 13:53 | 2DMMODE ---
[place] [address] 2 D/M-MODE ECHOCARDIOGRAM Name: JENI ZELAYA Room: [address] IN .R.#: [id number] Admission: 09/05/19 Attend Phys: Dc Houser Discharge: Date of : 73 Date of Service: 09/06/19 1353 Report #: [id number] THIS REPORT FOR: //name// APPROVED REPORT Study performed: 09/06/2019 10:13:33 EXAM: Comprehensive 2D, Doppler, and color-flow Echocardiogram Patient Location: Bedside BSA: 2.13 HR: 98 bpm BP: 158/94 mmHg Other Information Study Quality: Fair Indications Dyspnea 2D Dimensions IVSd: 10.77 (7-11mm) LVOT Diam: 17.81 (18-24mm) LVDd: 49.81 mm PWd: 11.47 (7-11mm) Ascending Ao: 28.88 (22-36mm) LVDs: 41.50 (25-40mm) Aortic Root: 28.88 mm Volumes Left Atrial Volume (Systole) LA ESV Index: 37.10 mL/m2 Aortic Valve AoV Peak Shawn.: 0.92 m/s AO Peak Gr.: 3.36 mmHg LVOT Max P.59 mmHg AO Mean Gr.: 2.06 mmHg LVOT Mean P.29 mmHg LVOT Max V: 0.80 m/s AO V2 VTI: 14.34 cm LVOT Mean V: 0.52 m/s SHIVAM (VTI): 2.52 cm2 LVOT V1 VTI: 14.52 cm Mitral Valve E/A Ratio: 1.51 MV Decel. Time: 92.52 ms MV E Max Shawn.: 1.18 m/s MV PHT: 26.83 ms MVA (PHT): 8.20 cm2 [place] [address] 2 D/M-MODE ECHOCARDIOGRAM Name: JENI ZELAYA Room: [address] IN [facility]#: [id number] Admission: 09/05/19 Attend Phys: Dc Houser Discharge: Date of : 73 Date of Service: 09/06/19 1353 Report #: [id number] TDI E/Lateral E': 11.80 E/Medial E': 10.73 Medial E' Shawn.: 0.11 m/s Lateral E' Shawn.: 0.10 m/s Pulmonary Valve PV Peak Shawn.: 0.96 m/s PV Peak Gr.: 3.65 mmHg Tricuspid Valve RAP Estimate: 20.00 mmHg TR Peak Gr.: 43.29 mmHg RVSP: 63.29 mmHg PA Pressure: 63.29 mmHg Left Ventricle The left ventricle is normal size. There is normal LV segmental wall motion. There is normal left ventricular wall thickness. The left ventricular systolic function is normal. LVEF is 50-55%. Transmitral Doppler flow pattern suggests restrictive physiology. Right Ventricle The right ventricle is normal size. The right ventricular systolic function is normal. Atria Left atrium is mildly dilated. The right atrium size is normal. Aortic Valve The aortic valve is normal in structure. No aortic regurgitation is present. There is no aortic valvular stenosis. Mitral Valve Mitral valve leaflets are mildly thickened. Mild mitral regurgitation. No evidence of mitral valve stenosis. Tricuspid Valve The tricuspid valve is normal in structure. Mild tricuspid regurgitation. Moderate pulmonary hypertension. Pulmonic Valve The pulmonary valve is normal in structure. There is no pulmonic valvular regurgitation. Great Vessels The aortic root is normal in size. IVC [place] [address] 2 D/M-MODE ECHOCARDIOGRAM Name: JENI ZELAYA Room: [address] IN [facility]#: [id number] Admission: 09/05/19 Attend Phys: Dc Houser Discharge: Date of : 73 Date of Service: 09/06/19 1353 Report #: [id number] Pericardium There is no pericardial effusion. Pleural effusion. <Conclusion> The left ventricle is normal size. There is normal left ventricular wall thickness. The left ventricular systolic function is normal. LVEF is 50-55%. Transmitral Doppler flow pattern suggests restrictive physiology. Left atrium is mildly dilated. Mild mitral regurgitation. Mild tricuspid regurgitation. Moderate pulmonary hypertension. IVC is dilated. Pleural effusion. <ELECTRONICALLY SIGNED> By: Wade Hughes MD, FACC 09/06/19 1353 1353 1353 Wade Hughes MD, FACC /INF
--- NOTE | 2019-09-06 14:41 | NUR ---
WOUND CARE NOTE: CONSULT RECEIVED FOR LEFT FOOT 4TH TOE AMP WITH WOUND VAC. WOUND VAC IN PLACE, FUNCTIONING WELL AT 150MMHG. VAC WAS PLACED YESTERDAY. NO GREGORIO-WOUND REDNESS NOTED. WILL PLAN TO CHANGE TOMORROW TO KEEP HER WITH A -- DRESSING CHANGE SCHEDULE.
--- NOTE | 2019-09-06 16:10 | NUR ---
Pt meeting with ID doctor. Pt known to this CM due to pt previous hospital stay. Pt lives with significant other. Pt has RW. SW to continue to follow to assist with safe dc planning.
[2019-09-06 17:18] VITALS: BP 138/78
[2019-09-06 18:23] LABS: URINE BILIRUBIN NEGATIVE (Negative); URINE BLOOD TRACE (Negative); URINE CLARITY CLEAR; URINE COLOR YELLOW; URINE GLUCOSE-RANDOM NEGATIVE (Negative); URINE KETONES NEGATIVE (Negative); URINE LEUKOCYTES-REFLEX NEGATIVE (Negative); URINE NITRITE-REFLEX NEGATIVE (Negative); URINE PROTEIN 1+ (Negative); URINE SPECIFIC GRAVITY 1.015 (1.005-1.030); URINE UROBILINOGEN 0.2 E.U./dl (0.2-1.0)
[2019-09-06 18:41] LABS: AMP/METHAMP Negative (Negative); BARBITURATES Negative (Negative); BENZODIAZEPINES Negative (Negative); COCAINE Negative (Negative); METHADONE Negative (Negative); OPIATES Negative (Negative); PCP Negative (Negative); THC Negative (Negative)
[2019-09-06 20:00] VITALS: BP 148/78
[2019-09-07] VITALS: BP 149/82
[2019-09-07 03:07] LABS: GLYCOHEMOGLOBIN (HGB A1C) 8.6 % (4.8-5.6)
[2019-09-07 04:00] VITALS: BP 139/79
--- NOTE | 2019-09-07 04:30 | NUR ---
PT SHOWING IMPROVEMENT FROM PREVIOUS 24HRS WITH BREATHING. STILL SOA WITH ACTIVITY BUT IMPROVED AT REST. PT STATES SHE FEELS MUCH BETTER. DID HAVE C/O TO BACK AND A HEADACHE BOTH RELIEVED BY PRN MEDICATION. PICC IS OPERATING FULLY, FLUSH AND DRAW. NO OTHER CONCERNS NOTED AT THIS TIME. PT IS IN BED WITH BED ALARM ON AND CALL LIGHT WITHIN REACH.
[2019-09-07 05:55] LABS: ABSOLUTE EOSINOPHILS 0.3 thou/uL (0.0-0.7); ABSOLUTE LYMPHOCYTES 1.2 thou/uL (0.8-5.3); ABSOLUTE MONOCYTES 1.3 thou/uL (0.0-1.2); ABSOLUTE NEUTROPHILS 6.4 thou/uL (1.6-8.1); BASOPHILS 0.5 %; EOSINOPHILS 3.6 %; HEMATOCRIT 29.9 % (37.0-47.0); HEMOGLOBIN 10.5 gm/dL (12.0-15.0); LYMPHOCYTES 13.3 %; MCH 30.3 pg (26.0-34.0); MCHC 35.1 g/dL (28.0-37.0); MCV 86.3 fL (80.0-100.0); MONOCYTES 13.6 %; MPV 7.9 fl. (7.2-11.1); NUCLEATED RBCS 0 /100WBC; PLATELET COUNT* 430 thou/uL (150-400); RBC 3.46 mil/uL (4.20-5.00); WBC 9.3 thou/uL (4.0-11.0)
[2019-09-07 06:07] LABS: ALBUMIN 2.2 g/dL (3.4-5.0); ALKALINE PHOSPHATASE 140 U/L (46-116); ANION GAP 11 mmol/L (7-16); BUN 13 mg/dL (7-18); CALCIUM 7.9 mg/dL (8.5-10.1); CHLORIDE 100 mmol/L (98-107); CHOLESTEROL 102 mg/dL (<200); CO2 27 mmol/L (21-32); CREATININE 1.1 mg/dL (0.6-1.3); GLUCOSE 190 mg/dL (70-99); HDL CHOLESTEROL 25 mg/dL (>40); LDL CHOLESTEROL 49 mg/dL (<100); POTASSIUM 3.5 mmol/L (3.5-5.1); SGOT 22 U/L (15-37); SGPT 20 U/L (30-65); SODIUM 138 mmol/L (136-145); TC:HDL 4.1 Ratio (Not establshd); TOTAL BILIRUBIN 0.4 mg/dL (<0.1-1.0); TOTAL PROTEIN 6.1 g/dL (6.4-8.2); TRIGLYCERIDE 140 mg/dL (<150); VLDL 28 mg/dL (<40)
[2019-09-07 06:08] LABS: SERUM ASSESSMENT CLEAR
[2019-09-07 06:16] LABS: PREALBUMIN 11.4 mg/dL (18.0-35.7)
--- NOTE | 2019-09-07 07:10 | NUR ---
CHANGE OF SHIFT, BEDSIDE REPORT GIVRN PATIENT SEEN AT BEDSIDE, IN BED ASLEEP ASSUMED PATIENT CARE
--- NOTE | 2019-09-07 07:11 | CON ---
[address] [address] CONSULTATION Name: JENI ZELAYA Room: [address] IN M.R.#: [id number] Admission: 09/05/19 Attend Phys: Zack Wharton Discharge: Date of : 73 Report #: [id number] THIS REPORT FOR: //name// CC: Karl Houser DATE OF SERVICE: 09/06/2019 INFECTIOUS DISEASE CONSULTATION ATTENDING PHYSICIAN: Dc Houser DO. REASON FOR EVALUATION: Pneumonitis with associated pleural effusion, complicated by hypoxemia. HISTORY OF PRESENT ILLNESS: Chart reviewed, patient examined. This is a 44-year-old woman well known to myself, has diabetes mellitus, had been hospitalized in early July with complaints of left toe pain and swelling, ultimately was diagnosed with osteomyelitis, underwent amputation. Operative cultures showed group B strep and had undergone extended period of parenteral therapy concluding with the ceftriaxone as it was paired down. [facility] and has seen them as recently as last week, had complained of some nausea intermittently. It was thought it was attributed to medicines including specifically metformin; however, over the course last short period prior to her presentation to the Emergency Room, she had been evaluated by her client relations representative, underwent a thoracentesis in the mid to latter part of August, and removed roughly a liter of fluid. This apparently was otherwise unremarkable in terms of infection. She, however, had abrupt onset of dyspnea, noted areas of patchy consolidation on her presentation to the ER and this was confirmed on CT. There is no evidence of pulmonary embolus. White count was in the normal range. Lactic acid 1.5. Blood cultures are sterile thus far. She is seen and she is in moderate respiratory distress. She does have nasal cannula oxygen in place, reported saturations 92-97%. She empirically started on piperacillin, tazobactam and levofloxacin. ALLERGIES: None known. MEDICATIONS: Include insulin, ondansetron, bupropion, tramadol, gabapentin, glipizide, and hydrocodone. PAST MEDICAL HISTORY: Diabetes mellitus type 2, history of osteomyelitis involving her left fourth toe, polycystic ovarian disease, previous history of cervical cancer. SOCIAL/FAMILY HISTORY: [place] [address] CONSULTATION Name: JENI ZELAYA Room: [address]#: [id number] Admission: 09/05/19 Attend Phys: Zack Wharton Discharge: Date of : 73 Report #: [id number] REVIEW OF SYSTEMS: Denies any significant gastrointestinal-related complaints at present except recent history of nausea. No recent fevers, diminished appetite. PHYSICAL EXAMINATION: GENERAL: She is alert, cooperative. She is lucid. She is in moderate respiratory distress, reasonably well nourished. VITAL SIGNS: Temperature 98.9, pulse 105, respirations 18, blood pressure 168/91. SKIN: Warm, dry, no rashes. HEENT: Normocephalic. Extraocular muscles are intact. NECK: Supple. LUNGS: Scattered coarse breath sounds, primarily on the left. HEART: Tachycardic. I do not appreciate a murmur. ABDOMEN: Soft, nontender, nondistended. EXTREMITIES: She has a wound VAC in place to distal left lower extremity. GENITOURINARY: Deferred. RECTAL: Deferred. LABORATORY DATA: CRP elevated at 48.1. Prealbumin of 12.2. Electrolytes: Sodium 135, potassium 4.0, chloride 101, bicarbonate 24, anion gap of 10, BUN and creatinine 11 and 1.1, glucose of 381. LFTs and alkaline phosphatase elevated at 155, otherwise unremarkable. Albumin of 2.4, total protein 6.6. Estimated GFR 54. Blood cultures sterile thus far. CBC: White count of 7.0, hemoglobin and hematocrit 10.5 and 30.9, platelets 419. CTA chest PE protocol, no evidence of PE, right middle lobe and lower lobe opacity suspicious for pneumonia, bilateral interlobular septal thickening, some ground-glass space opacities raised possibility of pulmonary edema, small right and moderate left pleural effusions. ASSESSMENT: Pneumonitis, complicated by effusion, may well be multifactorial given the abrupt onset, I think it is reasonable to treat empirically with antimicrobials at this point. We will utilize some cefepime. Noted Cardiology to exclude possibility of a cardiogenic issue. She remains somewhat tenuous at this point. We will monitor expectantly, supportive care. <ELECTRONICALLY SIGNED> By: Chintan Gomez MD 09/07/19 0711 1553 [id number] Gomez MD /nt
[2019-09-07 08:00] VITALS: BP 158/83
--- NOTE | 2019-09-07 08:37 | CON ---
[address] [address] CONSULTATION Name: ZELAYAJENI Shania Room: [address] IN .R.#: [id number] Admission: 09/05/19 Attend Phys: Zack Wharton Discharge: Date of : 73 Report #: [id number] THIS REPORT FOR: //name// CC: Karl Houser INDICATION: Heart failure. HISTORY OF PRESENT ILLNESS: The patient is a 44-year-old white female admitted to the hospital with progressive dyspnea and shortness of breath over the last several weeks. She was initially diagnosed with pneumonia and treated at an outside hospital with antibiotics and a pleurocentesis with transient improvement in her symptoms. After discharge from the hospital, she continued to have progressive dyspnea, developing into orthopnea and paroxysmal nocturnal dyspnea to the point where she felt like she could not breathe. The patient was admitted to the hospital with acute respiratory failure. NT-proBNP is elevated consistent with acute heart failure. An echocardiogram shows evidence of stage 3 diastolic dysfunction and preserved left ventricular systolic function. She has a large left pleural effusion on echocardiogram and chest x-ray. She is currently being treated with breathing treatments and antibiotics. She denies chest pain throughout all of this. There is no prior history of cardiac issues. EKG shows sinus rhythm without acute ST or T-wave abnormalities. PAST MEDICAL HISTORY: 1. COPD. 2. Diabetes. 3. Pneumonia. 4. Toe amputation, left foot. SOCIAL HISTORY: The patient is . She drinks alcohol 4-5 times weekly. She was smoking a quarter pack of cigarettes up until recently. FAMILY HISTORY: Positive for coronary artery disease in her maternal uncle in his 70s. ALLERGIES: None. CURRENT MEDICATIONS: Bupropion, gabapentin, amlodipine, glipizide, amoxicillin, aspirin. REVIEW OF SYSTEMS: Positive for some focal paralysis due to a mini stroke. This has resolved. She reports a cough productive of clear sputum. She has COPD. She reports significant wheezing. She reports dyspnea on exertion, orthopnea and paroxysmal nocturnal dyspnea. She has type 2 diabetes mellitus. She has some vomiting without hematemesis. She has had cervical cancer twice, status post treatment. She has seasonal allergies [place] [address] CONSULTATION Name: JENI ZELAYA Room: [address]#: [id number] Admission: 09/05/19 Attend Phys: Zack Wharton Discharge: Date of : 73 Report #: [id number] She has some arthritis without connective tissue disease. She reports some psoriasis. She has decreased hearing. Otherwise, 14-point review of systems was unremarkable. PHYSICAL EXAMINATION: VITAL SIGNS: Blood pressure 168/91, pulse is 105 and regular. GENERAL: This is a pleasant female who does not appear to be in distress, but does appear somewhat short of breath even at rest. HEENT: Head is normocephalic, atraumatic. Extraocular muscles intact. NECK: Shows jugular venous distention without carotid bruit. CHEST: Reveals diminished breath sounds throughout with slight expiratory wheezes. Breath sounds are absent in the bases. CARDIAC: Reveals a tachycardic rhythm with S3. I do not appreciate a murmur. ABDOMEN: Reveals normal bowel sounds. The abdomen is soft, nontender. EXTREMITIES: Shows 1+ edema of the left lower extremity, no edema of the right lower extremity. Left foot is wrapped with a wound VAC in place. EKG shows no acute changes. LABORATORY DATA: Reviewed. Troponins are unremarkable. NT-proBNP was 20,229. Chest x-ray shows diffuse edema and bilateral effusions with possible pneumonia. IMPRESSION AND RECOMMENDATIONS: 1. Acute on chronic diastolic heart failure. Recommend diuresis with IV Lasix and followup studies after this is done. I suspect this will improve her breathing as well as blood pressure. 2. Left pleural effusion, consider thoracentesis. 3. Diabetes per primary physician. 4. Chronic obstructive pulmonary disease. Continue pulmonary treatments. 5. Possible pneumonia. Continue IV antibiotics. 6. Peripheral vascular disease with previous toe amputation, presently stable. 7. Hypertension, not well controlled presently. I believe after diuresis, her blood pressure will improve. We will make further adjustments pending those results. <ELECTRONICALLY SIGNED> By: Wade Hughes MD, FACC 09/07/19 0837 1415 [id number] Hughes MD, FACC /nt
[2019-09-07 11:33] VITALS: BP 149/85
--- NOTE | 2019-09-07 15:42 | NUR ---
WOUND CARE NOTE: CONSULT RECEIVED FOR LEFT FOOT 4TH TOE AMP WITH WOUND VAC. VAC FUNCTIONING WELL, PAUSED FOR DRESSING CHANGE. ALL BLACK FOAM REMOVED. INDENTION FROM TUBING AND TRAC PAD NOTED TO ANTERIOR MURPHY. CLEANSED WOUND WITH WOUND CLEANSER, PATTED DRY. WOUND MEASURES 2X1.5X0.6. PINK, MOIST WOUND BED APPROXIMATELY 5% WITH YELLOW, ADHERENT SLOUGH TO THE MEDIAL ASPECT. GREGORIO-WOUND INTACT WITH SOME MACERATION ALONG THE 5TH MEDIAL TOE. APPLIED SKIN PREP TO GREGORIO-WOUND. APPLIED OSTOMY BARRIER RING TO THE DISTAL MOST PORTION OF THE WOUND BED TO ASSIST WITH SEAL OF THE WOUND VAC. CUT BLACK FOAM TO FIT INTO WOUND BED. DRAPED, BRIDGED TO OFFLOAD, AVOIDING PREVIOUS SITE. GOOD SEAL OBTAINED AT 150MMHG, CONTINUOUS. WRAPPED LEG WITH KERLIX AND THEN YANETH TO KEEP SECURE AND FOR SLIGHT EDEMA CONTROL. PATIENT TOLERATED DRESSING CHANGE WELL. RECOMMEND ENCOURAGE GOOD NUTRTION/HYDRATION TIGHT BLOOD GLUCOSE CONTROL -- DRESSING CHANGES. FOLLOW UP IN [facility] UPON DISCHARGE
--- NOTE | 2019-09-07 15:44 | CON ---
[address] [address] CONSULTATION Name: JENI ZELAYA Room: [address] IN M.R.#: [id number] Admission: 09/05/19 Attend Phys: Zack Wharton Discharge: Date of : 73 Report #: [id number] THIS REPORT FOR: //name// CC: Karl Houser DATE OF SERVICE: 09/07/2019 I was asked to see this 44-year-old lady for shortness of breath. HISTORY OF PRESENT ILLNESS: She does have history of 06-irck-tuax smoking, stopped smoking about a month ago. She does have COPD and is on Trelegy and albuterol. She was discharged from [facility] on 08/25. She was admitted for shortness of breath. She had left thoracentesis done, which only records from the pleural fluid study disease. There was no infection. She has had increased shortness of breath for the past week or so. She has had lower extremity edema. She has occasional cough, but denies sputum production, fever or chills. She has had occasional wheezing. She denies runny nose, nasal congestion. At the beginning of 08/2019, she did have left-sided weakness and slurred speech. She did not seek medical attention, but she had an MRI done at [facility], which did show acute lacunar-type infarct in the right posterior limb of internal capsule extending into the no radiata. Neurology did see her while she was at [facility], recommended aspirin daily and follow up with them. She is followed by Dr. Elkins, a instructional technology instructor at [facility]. She does snore and has excessive daytime sleepiness. She has not had a sleep study. PAST MEDICAL HISTORY: Diastolic congestive heart failure, hypertension, diabetes mellitus, CVA as mentioned as above, COPD. ALLERGIES: No known drug allergies. MEDICATIONS: Currently, she is on insulin, albuterol, Zofran, Wellbutrin, tramadol, gabapentin. Cefepime, Lasix, which she did receive one dose yesterday. SOCIAL HISTORY: History of 74-rbqd-jyqw smoking, stopped smoking a month ago. FAMILY HISTORY: Hypertension. REVIEW OF SYSTEMS: As mentioned as above. She had toe amputation in July in [facility]. There is a wound VAC on it. Other systems are otherwise negative. PHYSICAL EXAMINATION: [place] [address] CONSULTATION Name: JENI ZELAYA Room: [address]#: [id number] Admission: 09/05/19 Attend Phys: Zack Wharton Discharge: Date of : 73 Report #: [id number] GENERAL: This is an overweight lady. VITAL SIGNS: Her O2 saturation on 4 liters of oxygen is 96%, respiratory rate 18, heart rate 93, temperature 37.2. She is not able to finish a sentence due to shortness of breath. HEENT: Normocephalic, atraumatic. Pupils equal, round, reactive to light. Nose is clear. Throat: There is shallow oropharynx. NECK: Positive JVD. No lymphadenopathy or thyromegaly. CARDIOVASCULAR: Regular rate and rhythm. PMI is nondisplaced. CHEST: Inspection is normal. LUNGS: There are bibasilar crackles, dullness at the base on the left to mid chest area, a few end expiratory wheezing. ABDOMEN: Soft and obese. Bowel sounds are good. There is no mass. EXTREMITIES: There is edema. LYMPHATICS: There is no lymphadenopathy. SKIN: Chronic changes. LABORATORY DATA: I reviewed the following lab data: Chest x-ray shows increased vascular marking, right lower lobe infiltrate, bilateral effusion, left more than right. CT of the chest did not show pulmonary embolism, did show right middle lobe, right lower lobe opacities, bilateral interlobular septal thickening, some ground-glass opacities, possibly pulmonary edema, small right and moderate left pleural effusion, cardiomegaly, multiple enlarged mediastinal lymphadenopathy measuring up to 1.8 cm. WBC 9.3, hemoglobin 10.5, platelets 430. Sodium 138, potassium 3.5, chloride 100, CO2 27, BUN 13, creatinine 1.1. Lactic acid 1.5. BNP 20,229. Troponin less than 0.06. Urine drug screen is negative. IMPRESSION: 1. Acute respiratory failure due to acute diastolic congestive heart failure, chronic obstructive pulmonary disease with mild acute exacerbation, cannot rule out pneumonia, no pulmonary embolism versus others. 2. Abnormal CT of the chest, as mentioned as above. 3. Acute diastolic congestive heart failure. 4. Chronic obstructive pulmonary disease with mild acute exacerbation. 5. Acute bronchitis versus pneumonia. 6. History of cerebrovascular accident. 7. Diabetes mellitus. 8. Hypertension. 9. Ex-smoker. 10. Snoring and excessive daytime sleepiness and obesity, probable obstructive sleep apnea-hypopnea syndrome. PLAN AND RECOMMENDATIONS: 1. Titrate FiO2 to keep O2 saturation 92%. 2[place] [address] CONSULTATION Name: JNEI ZELAYA Room: [address] IN [facility]#: [id number] Admission: 09/05/19 Attend Phys: Zack Wharton Discharge: Date of : 73 Report #: [id number] 3. Add inhaled corticosteroid. 4. Aggressive diuresis. She has a moderate size left pleural effusion and she is not able to finish sentences, I believe she would benefit from left thoracentesis. I will ask IR to do thoracentesis. She did have thoracentesis in mid August in [facility]. I will send pleural fluid for cell count with differential, cytology, LDH, protein, glucose, and cultures, pH. We will do serum LDH, total protein, glucose at the same time. 5. Continue not smoking. 6. I have discussed obstructive sleep apnea-hypopnea syndrome, the importance of diagnosis and treatment, if untreated increase cardiovascular and CHANGE AGENT morbidity or mortality. I do recommend the outpatient sleep study. 7. Followup CT of the chest in 6 weeks as she has a significant history of smoking. She has mediastinal lymphadenopathy and infiltrate. 8. Follow Cardiology recommendations. 9. Follow up with Neurology. 10. Follow up with her instructional technology instructor, Dr. Elkins after her repeat CT of the chest is done. 11. The findings and recommendations were discussed with the patient and RN. I have answered all of the patient's questions. She understood and agreed to proceed with the plan. Thank you very much for allowing me to participate in care of this very nice lady. <ELECTRONICALLY SIGNED> By: Payton Sweet MD 09/07/19 1544 [id number] toney Garcia
[2019-09-07 15:48] LABS: BF RBC <1000 /mm3; TOTAL CELL COUNT 299 /mm3
[2019-09-07 15:52] LABS: TOTAL VOLUME 1450 ml
[2019-09-07 15:53] LABS: CLARITY HAZY
[2019-09-07 15:58] VITALS: BP 135/77
[2019-09-07 16:00] LABS: SOURCE THORACENTESIS
[2019-09-07 16:03] LABS: BF LYMPHOCYTES 81 %; BF POLYS 19 %; BF TISSUE 3 /100 WBC
[2019-09-07 16:04] LABS: BF OTHER CYTO TO FOLLOW
[2019-09-07 20:00] VITALS: BP 131/72
[2019-09-08] VITALS: BP 110/61
[2019-09-08 04:00] VITALS: BP 100/52
[2019-09-08 06:17] LABS: CREATININE 1.3 mg/dL (0.6-1.3)
[2019-09-08 08:30] VITALS: BP 141/74
[2019-09-08 11:52] VITALS: BP 109/61
--- NOTE | 2019-09-08 16:31 | NUR ---
ASSUMED CARE OF PT APPROX 0730. REASSESSMENT COMPLETED CHARTED. MEDICATIONS GIVEN CHARTED. SAFTEY PRECAUTIONS UTILIZED, HOURLY ROUNDING. MEDICATIONS DISCUSSED WITH PT, PT VERBALIZED UNDERSTANDING OF MEDICATIONS. PTS O2 TITRATED DOWN TO 2L NC THIS AFTERNOON, PT TOLERATING CHANGE, SAT AT 98%.
--- NOTE | 2019-09-08 18:15 | NUR ---
PTS O2 TITRATED DOWN TO 1L, PTS 02 SAT 96%. PTS NEEDS MET. FAMILY AT BEDSIDE.
[2019-09-08 20:00] VITALS: BP 124/70
[2019-09-08 23:50] VITALS: BP 116/82
[2019-09-09 04:00] VITALS: BP 131/80
[2019-09-09 06:14] LABS: ABSOLUTE BASOPHILS 0.1 thou/uL (0.0-0.2); ABSOLUTE EOSINOPHILS 0.2 thou/uL (0.0-0.7); ABSOLUTE LYMPHOCYTES 1.6 thou/uL (0.8-5.3); ABSOLUTE MONOCYTES 1.6 thou/uL (0.0-1.2); ABSOLUTE NEUTROPHILS 6.9 thou/uL (1.6-8.1); BASOPHILS 0.7 %; EOSINOPHILS 2.4 %; HEMATOCRIT 29.4 % (37.0-47.0); HEMOGLOBIN 10.5 gm/dL (12.0-15.0); LYMPHOCYTES 15.3 %; MCH 30.2 pg (26.0-34.0); MCHC 35.6 g/dL (28.0-37.0); MCV 84.9 fL (80.0-100.0); MONOCYTES 15.2 %; MPV 7.4 fl. (7.2-11.1); NUCLEATED RBCS 0 /100WBC; POLYS 66.4 %; RBC 3.46 mil/uL (4.20-5.00); RDW-CV 13.7 % (10.5-14.5); WBC 10.4 thou/uL (4.0-11.0)
[2019-09-09 06:15] LABS: PLATELET COUNT* 315 thou/uL (150-400)
[2019-09-09 06:38] LABS: ALBUMIN 2.1 g/dL (3.4-5.0); CALCIUM 7.8 mg/dL (8.5-10.1); CREATININE 1.3 mg/dL (0.6-1.3); POTASSIUM 3.3 mmol/L (3.5-5.1); TOTAL BILIRUBIN 0.3 mg/dL (<0.1-1.0); TOTAL PROTEIN 6.1 g/dL (6.4-8.2)
[2019-09-09 07:11] LABS: BODY FLUID AMYLASE 23 U/L (()); BODY FLUID LDH 68 IU/L (()); BODY FLUID PROTEIN 2.2 g/dL (())
[2019-09-09 08:00] VITALS: BP 138/83
[2019-09-09 11:56] LABS: SOURCE THORACENTESIS
[2019-09-09 11:57] LABS: SOURCE THORACENTESIS
--- NOTE | 2019-09-09 13:00 | NUR ---
VSS, PT A&OX4, MED SURG STATUS, PICC RT UPPER ARM- BLOOD RETURN. HOURLY ROUNDING PERFORMED, POSSESSIONS AND CALL LIGHT WITHIN REACH. AMPUTATION OF TOE ON LEFT FOOT, WOUND VAC. DRESSING CHANGES --. TRANSFERRED TO [facility]. REPORT GIVEN TO JANEL GALAN
[2019-09-09 15:09] LABS: BODY FLUID PH 7.4 (Not Estab.)
--- NOTE | 2019-09-09 18:51 | NUR ---
PT ARRIVED TO ROOM 108 AT APPROX 1200, PT A/O X4, C/O SOME N/V. DISCUSSED PRN MEDS WITH PT, SHE VERBALIZED UNDERSTANDING. PT UP WITH ASSIST TO BSC, FALL PRECAUTIONS IN PLACE. WOUND VAC AT 150 CONTINUOUS , NO DRAINAGE NOTED AT THIS TIME.
[2019-09-09 20:15] VITALS: BP 123/69
--- NOTE | 2019-09-10 02:43 | NUR ---
RECEIVED REPORT AND ASSUMED CARE AT 1900. VSS. PT REPORTS PAIN, PRN MEDICATION PER EMAR. ASSESSMENT COMPLETED CHARTED. BED LOCKED IN LOWEST POSITION, CALL LIGHT WITHIN REACH. UP WITH ASSIST TO BSC, ON 1L NC.
[2019-09-10 06:07] LABS: CALCIUM 6.9 mg/dL (8.5-10.1); CREATININE 1.4 mg/dL (0.6-1.3); POTASSIUM 3.6 mmol/L (3.5-5.1)
[2019-09-10 07:30] VITALS: BP 132/81
--- NOTE | 2019-09-10 11:48 | NUR ---
CHF Discharge Medication Education: Patient received an education handout. The medication furosemide was dicussed regarding how to take, side effects, and how it works. All questions and concerns were addressed. Thank you.
--- NOTE | 2019-09-10 13:53 | NUR ---
WOUND CARE NOTE: PATIENT SEEN FOR WOUND VAC DRESSING CHANGE TO POST OP SITE (LEFT FOOT 4TH TOE AMP). REMOVED DRESSING AND CLEANSED WITH WOUND CLEANSER. APPLIED SKIN PREP TO PERIWOUND TISSUE AND UNDER TRANSPARENT DRAPE. PLACED GRANUFOAM (CUT TO FIT) INTO WOUND BED, THEN SECURED USING TRANSPARENT DRAPE. BRIDGED TRAC PAD AWAY FROM WOUND AND ATTACHED TO LOWER LEG MAKING SURE HOLE CUT TO ALLOW SUCTION TO FLOW TO WOUND. WRAPPED WITH KERLEX ROLL GAUZE UNDER YANETH WRAP. PRESENTS WITH >90% BEEFY RED GRANULATION TISSUE AND <10% EXPOSED BONE AND SLOUGH. THERE IS NO PERIWOUND REDNESS, WARMTH, OR INDURATION. THERE IS SLIGHT EDEMA IN TOES AND FOOT. CONFIRMED WITH GURPREET IN THE WOUND CARE CENTER THAT PATIENT SCHEDULED TO SEE [facility] ON TUESDAY AT 1330 IF SHE DISCHARGES TOMORROW. PATIENT INSTRUCTED ON MEASURES TO PROMOTE HEALING AND PREVENT FURTHER COMPLICATIONS. STATES SHE UNDERSTANDS.
--- NOTE | 2019-09-10 16:38 | NUR ---
SW met with pt to provide information on social security disability; [employer] and/or SS office to begin process of applying for disability. Pt continues to plan to be able to dc home with sig. other at dc and possible resumption of care with [facility]. SW to continue to follow to assist with safe dc planning.
[2019-09-10 17:12] VITALS: BP 141/66
--- NOTE | 2019-09-10 18:34 | NUR ---
PATIENT DENIES DISTRESS TAKING PO WELL REINFORCED FLUID RESTRICTION.
[2019-09-10 21:45] VITALS: BP 127/67
[2019-09-11 06:03] LABS: CALCIUM 7.5 mg/dL (8.5-10.1); CREATININE 1.3 mg/dL (0.6-1.3)
--- NOTE | 2019-09-11 07:29 | NUR ---
PATIENT HAS SLEPT WELL THROUGHOUT MOST OF THE NIGHT. VSS ON 1L 02 VIA NASAL CANNULA, ALTHOUGH TEMP 99.1 AND PULSE TACHY. RIGHT UPPER ARM PICC-SL. IV ABT GIVEN WITHOUT ANY ADVERSE SIDE EFFECTS NOTED. DRESSING TO LEFT FOOT IS C/D/I WITH WOUND VAC TO SUCTION. PATIENT IS UP WITH SBA TO THE BSC. PATIENT INSTRUCTED TO USE CALL LIGHT WHEN NEEDING ASSISTANCE. HOURLY ROUNDS MADE. WILL CONTINUE WITH PLAN OF CARE AND NURSING TO MONITOR.
[2019-09-11 07:30] VITALS: BP 138/73
[2019-09-11 09:36] VITALS: BP 138/73
[2019-09-11] MEDS ORDERED: LASIX 40 MG TAB40 MG PO (10:32)
[2019-09-11] MEDS ORDERED: PRINIVIL5 MG PO (10:33)
[2019-09-11] MEDS ORDERED: LANTUS SUBQ (10:34)
[2019-09-11] MEDS ORDERED: HUMALOG100 UNIT/1 SUBQ (10:36)
[2019-09-11] MEDS ORDERED: PROTONIX40 M2 PO (10:37)
[2019-09-11] MEDS ORDERED: CEFDINIR300 MG PO (10:37)
[2019-09-11] MEDS ORDERED: ASA81BEC PO (10:41)
--- NOTE | 2019-09-11 10:52 | NUR ---
pt will be resuming care w/ [facility]. LESTER calvo w/Kirill w/ [facility] and they are will to accept pt back on service. LESTER faxed facesheet and orders to [phone].
--- NOTE | 2019-09-11 12:06 | PATH ---
[address] [address] PATHOLOGY RPT PROCEDURE Name: JENI ZELAYA Room: [address] IN [facility]#: [id number] Admission: 09/05/19 Date of : 73 Discharge: Report #: [id number] Path Case #: [id number] Note [facility] Accession Number: [id number] TESTS RESULT FLAG UNITS REF RANGE LAB Clinician Provided Cytology Information No. of containers..01 Other (Miscellaneous) Source: LEFT PLEURAL FLUID DIAGNOSIS: LEFT PLEURAL FLUID NEGATIVE FOR MALIGNANT CELLS. MESOTHELIAL CELLS AND INFLAMMATORY CELLS WITH DEGENERATION. SCANT CELLULARITY. Signed out by: 02 Earnest Gutierrez MD, Pathologist NPI- [id number] Performed by: Naomy Jane, [employer] ([facility]) Gross description: 01 80ML, CLOUDY YELLOW, 1 TP 1 CB /LCS 09/10/2019 1735 Local FLAG LEGEND: L-Low Normal,H-High Normal,LL-Alert Low,HH-Alert High <-Panic Low,>-Panic High,A-Abnormal,AA-Critical Abnormal Performed at: [address] [place] [address] Kwame Reid MD, [address] [address] Earnest Gutierrez MD, Performed at: [address], [place], [place] [id number] MD Kwame Reid MD Phone: [phone]
--- NOTE | 2019-09-11 12:42 | NUR ---
PT GIVEN DISCHARGE INFORMATION, CARE NOTES, AND PRESCRIPTIONS. APPOTINMENTS MADE PER HF PROTOCOL. FALL RISK PRECAUTIONS IN PLACE. HOURLY ROUNDING COMPLETED. PT LEFT VIA WHEELCHAIR WITH NURSING STAFF TO HOME WITH HOME HEALTH.
== END 2019-09-11 12:43 | disposition home health service (06) | DRG 177 ==
LOC: M.ERS 12:30 → M.TBA-ER 14:14 → M.2W 14:14 → M.ORTHSURG 09-09 12:05
PROVIDERS: Emergency Medicine Emergency Medical Services; Internal Medicine; Internal Medicine Cardiovascular Disease; Internal Medicine Pulmonary Disease; ADMIT Internal Medicine
PROC: 0W9B3ZZ Drainage of Left Pleural Cavity, Percutaneous Approach (ICD-10-PCS; principal; 2019-09-07)
DX: J15.6 Pneumonia due to other Gram-negative bacteria (principal); J96.01 Acute respiratory failure with hypoxia; I50.33 Acute on chronic diastolic (congestive) heart failure; J44.1 Chronic obstructive pulmonary disease with (acute) exacerbation; J44.0 Chronic obstructive pulmonary disease with (acute) lower respiratory infection; J91.8 Pleural effusion in other conditions classified elsewhere; I11.0 Hypertensive heart disease with heart failure; E11.51 Type 2 diabetes mellitus with diabetic peripheral angiopathy without gangrene; E66.9 Obesity, unspecified; E28.2 Polycystic ovarian syndrome; G47.33 Obstructive sleep apnea (adult) (pediatric); R60.0 Localized edema; L03.032 Cellulitis of left toe; R59.1 Generalized enlarged lymph nodes; D64.9 Anemia, unspecified; F12.90 Cannabis use, unspecified, uncomplicated; Z79.4 Long term (current) use of insulin; Z86.73 Personal history of transient ischemic attack (TIA), and cerebral infarction without residual deficits; Z68.34 Body mass index [BMI] 34.0-34.9, adult; Z85.41 Personal history of malignant neoplasm of cervix uteri; Z80.9 Family history of malignant neoplasm, unspecified; Z87.891 Personal history of nicotine dependence; Z79.899 Other long term (current) drug therapy; Z79.84 Long term (current) use of oral hypoglycemic drugs; Z89.422 Acquired absence of other left toe(s); Z72.89 Other problems related to lifestyle; Z82.49 Family history of ischemic heart disease and other diseases of the circulatory system; Z99.81 Dependence on supplemental oxygen

== ENCOUNTER → 2019-09-12 | Outpatient (CLI) | payer OTHER ==
--- NOTE | 2019-09-11 14:06 | NUR ---
CM CONFIRMED RECEIPT W/OUTPATIENT SCHEDULING, SPK W/PLASHETTE.
[~2019-09-12] MED LIST changes: +AMOXICILLI400 MG/5 M PO; +ASA81BEC PO; +CEFDINIR300 MG PO; +HUMALOG100 UNIT/1 SUBQ; +LANTUS SUBQ; +LASIX 40 MG TAB40 MG PO; +PRINIVIL5 MG PO; +PROTONIX40 M2 PO
== END ==
LOC: M.WC 13:24
DX: T87.89 Other complications of amputation stump (principal); E11.621 Type 2 diabetes mellitus with foot ulcer; L97.526 Non-pressure chronic ulcer of other part of left foot with bone involvement without evidence of necrosis; E11.21 Type 2 diabetes mellitus with diabetic nephropathy; E11.40 Type 2 diabetes mellitus with diabetic neuropathy, unspecified; E43 Unspecified severe protein-calorie malnutrition; I87.2 Venous insufficiency (chronic) (peripheral); F17.200 Nicotine dependence, unspecified, uncomplicated; Z85.41 Personal history of malignant neoplasm of cervix uteri; Y83.5 Amputation of limb(s) as the cause of abnormal reaction of the patient, or of later complication, without mention of misadventure at the time of the procedure

== ENCOUNTER → 2019-09-19 | Outpatient (CLI) | payer OTHER ==
--- NOTE | 2019-09-20 11:53 | CON ---
[address] [address] CONSULTATION Name: JENI ZELAYA Shania Room: [facility] Bebeto[facility]all#: [id number] Admission: 09/19/19 Attend Phys: Robin Monae DPM Discharge: Date of : 73 Report #: [id number] THIS REPORT FOR: //name// CC: Robin Thomson DATE OF SERVICE: 09/19/2019 INFECTIOUS DISEASE CONSULTATION FOLLOWUP ATTENDING PHYSICIAN: Robin Monae DPM REASON FOR EVALUATION: Followup on chronic osteomyelitis involving the left fourth toe, status post amputation. HISTORY OF PRESENT ILLNESS: Generally, she is doing better, having completed a prescribed course of parenteral and enteral treatment. She has been utilizing wound VAC. On examination, the wound appeared to be well granulated with just a very little site of exposed cartilage at this point. On questioning, she denies any significant systemic illness. Appetite has been good. No fevers. No pulmonary or gastrointestinal related complaints. ASSESSMENT AND PLAN: Chronic osteomyelitis. At this point, we will discontinue the systemic antimicrobials, use topical gentamicin to the site. Wound VAC as per Dr. Monae. We will see her in followup in 1 week. <ELECTRONICALLY SIGNED> By: Chintan Gomez MD 09/20/19 1153 2131 0019Jomc Gomez MD /nt
== END ==
LOC: M.WC 07:21
DX: T87.89 Other complications of amputation stump (principal); E11.621 Type 2 diabetes mellitus with foot ulcer; L97.522 Non-pressure chronic ulcer of other part of left foot with fat layer exposed; E11.40 Type 2 diabetes mellitus with diabetic neuropathy, unspecified; E43 Unspecified severe protein-calorie malnutrition; I87.2 Venous insufficiency (chronic) (peripheral); I50.9 Heart failure, unspecified; Z85.41 Personal history of malignant neoplasm of cervix uteri; Y83.5 Amputation of limb(s) as the cause of abnormal reaction of the patient, or of later complication, without mention of misadventure at the time of the procedure

== ENCOUNTER → 2019-09-20 | Outpatient (CLI) | payer OTHER | LOC: M.RAD 10:59 | DX: J44.9 Chronic obstructive pulmonary disease, unspecified (principal); J90 Pleural effusion, not elsewhere classified; J98.11 Atelectasis; R91.8 Other nonspecific abnormal finding of lung field ==

== ENCOUNTER → 2019-09-26 | Outpatient (CLI) | payer OTHER | LOC: M.WC 05:09 | DX: T87.89 Other complications of amputation stump (principal); E11.621 Type 2 diabetes mellitus with foot ulcer; L97.522 Non-pressure chronic ulcer of other part of left foot with fat layer exposed; E11.40 Type 2 diabetes mellitus with diabetic neuropathy, unspecified; E43 Unspecified severe protein-calorie malnutrition; I87.2 Venous insufficiency (chronic) (peripheral); F17.200 Nicotine dependence, unspecified, uncomplicated; Z85.41 Personal history of malignant neoplasm of cervix uteri; Y83.5 Amputation of limb(s) as the cause of abnormal reaction of the patient, or of later complication, without mention of misadventure at the time of the procedure ==

== ENCOUNTER → 2019-10-10 | Outpatient (CLI) | payer OTHER | LOC: M.WC 02:25 | DX: T87.89 Other complications of amputation stump (principal); E11.621 Type 2 diabetes mellitus with foot ulcer; L97.522 Non-pressure chronic ulcer of other part of left foot with fat layer exposed; E11.40 Type 2 diabetes mellitus with diabetic neuropathy, unspecified; E11.21 Type 2 diabetes mellitus with diabetic nephropathy; E43 Unspecified severe protein-calorie malnutrition; I87.2 Venous insufficiency (chronic) (peripheral); F17.200 Nicotine dependence, unspecified, uncomplicated; Z85.41 Personal history of malignant neoplasm of cervix uteri; Y83.5 Amputation of limb(s) as the cause of abnormal reaction of the patient, or of later complication, without mention of misadventure at the time of the procedure ==

== ENCOUNTER → 2019-10-24 | Outpatient (CLI) | payer OTHER | LOC: M.WC 00:21 | DX: T87.89 Other complications of amputation stump (principal); E11.621 Type 2 diabetes mellitus with foot ulcer; L97.522 Non-pressure chronic ulcer of other part of left foot with fat layer exposed; L84 Corns and callosities; E11.21 Type 2 diabetes mellitus with diabetic nephropathy; E11.40 Type 2 diabetes mellitus with diabetic neuropathy, unspecified; E43 Unspecified severe protein-calorie malnutrition; I87.2 Venous insufficiency (chronic) (peripheral); F17.200 Nicotine dependence, unspecified, uncomplicated; Z85.41 Personal history of malignant neoplasm of cervix uteri; Y83.5 Amputation of limb(s) as the cause of abnormal reaction of the patient, or of later complication, without mention of misadventure at the time of the procedure ==

== ENCOUNTER → 2019-11-07 | Outpatient (CLI) | payer OTHER | LOC: M.WC 04:27 | DX: T87.89 Other complications of amputation stump (principal); E11.621 Type 2 diabetes mellitus with foot ulcer; L97.528 Non-pressure chronic ulcer of other part of left foot with other specified severity; E11.40 Type 2 diabetes mellitus with diabetic neuropathy, unspecified; E11.21 Type 2 diabetes mellitus with diabetic nephropathy; E43 Unspecified severe protein-calorie malnutrition; I87.2 Venous insufficiency (chronic) (peripheral); F17.200 Nicotine dependence, unspecified, uncomplicated; Z85.41 Personal history of malignant neoplasm of cervix uteri; Y83.5 Amputation of limb(s) as the cause of abnormal reaction of the patient, or of later complication, without mention of misadventure at the time of the procedure ==

== ENCOUNTER → 2019-11-14 | Outpatient (CLI) | payer OTHER ==
[2019-11-14 08:53] LABS: HEMATOCRIT 35.2 % (37.0-47.0); HEMOGLOBIN 12.3 gm/dL (12.0-15.0); MCH 30.4 pg (26.0-34.0); MCHC 34.9 g/dL (28.0-37.0); MCV 87.1 fL (80.0-100.0); NUCLEATED RBCS 0 /100WBC; PLATELET COUNT* 233 thou/uL (150-400); RBC 4.04 mil/uL (4.20-5.00); RDW-CV 19.5 % (10.5-14.5); WBC 7.6 thou/uL (4.0-11.0)
[2019-11-14 09:02] LABS: CALCIUM 8.2 mg/dL (8.5-10.1); CREATININE 1.1 mg/dL (0.6-1.3); POTASSIUM 4.5 mmol/L (3.5-5.1); TOTAL BILIRUBIN 0.3 mg/dL (<0.1-1.0); TOTAL PROTEIN 7.2 g/dL (6.4-8.2)
[2019-11-14 09:27] LABS: ABSOLUTE BASOPHILS 0.1 thou/uL (0.0-0.2); ABSOLUTE EOSINOPHILS 0.5 thou/uL (0.0-0.7); ABSOLUTE LYMPHOCYTES 2.1 thou/uL (0.8-5.3); ABSOLUTE MONOCYTES 0.3 thou/uL (0.0-1.2); ABSOLUTE NEUTROPHILS 4.6 thou/uL (1.6-8.1); PLATELET ESTIMATE ADEQUATE
[2019-11-14 10:01] LABS: ESR (SEDRATE) 20 mm/hr (0-20)
[2019-11-16 09:08] LABS: ANTI-SSA <0.2 AI (0.0-0.9)
== END ==
LOC: M.LAB 08:23
PROVIDERS: Psychiatry & Neurology Neuromuscular Medicine
DX: I63.9 Cerebral infarction, unspecified (principal); I51.89 Other ill-defined heart diseases; F41.9 Anxiety disorder, unspecified; E87.1 Hypo-osmolality and hyponatremia; E83.51 Hypocalcemia; D72.829 Elevated white blood cell count, unspecified

== ENCOUNTER 2020-06-27 11:37 | Inpatient (IN) | payer OTHER ==
[~2020-06-27] VITALS: Ht 172.7 cm; Wt 127.0 kg
[2020-06-27 11:59] VITALS: BP 194/107
[2020-06-27 12:38] LABS: ABSOLUTE BASOPHILS 0.1 thou/uL (0.0-0.2); ABSOLUTE EOSINOPHILS 0.4 thou/uL (0.0-0.7); ABSOLUTE LYMPHOCYTES 1.9 thou/uL (0.8-5.3); ABSOLUTE MONOCYTES 0.9 thou/uL (0.0-1.2); ABSOLUTE NEUTROPHILS 8.4 thou/uL (1.6-8.1); BASOPHILS 1.3 %; EOSINOPHILS 3.8 %; HEMATOCRIT 33.3 % (37.0-47.0); HEMOGLOBIN 11.6 gm/dL (12.0-15.0); LYMPHOCYTES 15.9 %; MCV 91.7 fL (80.0-100.0); MONOCYTES 7.6 %; MPV 7.8 fl. (7.2-11.1); NUCLEATED RBCS 0 /100WBC; PLATELET COUNT* 228 thou/uL (150-400); POLYS 71.4 %; RBC 3.63 mil/uL (4.20-5.00); RDW-CV 12.3 % (10.5-14.5); WBC 11.7 thou/uL (4.0-11.0)
[2020-06-27 12:42] LABS: CALCIUM 8.4 mg/dL (8.5-10.1); CREATININE 2.2 mg/dL (0.6-1.3); POTASSIUM 4.6 mmol/L (3.5-5.1)
[2020-06-27 12:54] LABS: ALBUMIN 2.6 g/dL (3.4-5.0); TOTAL BILIRUBIN 0.3 mg/dL (<0.1-1.0); TOTAL PROTEIN 6.9 g/dL (6.4-8.2)
[2020-06-27 15:31] LABS: APTT 26.9 Seconds (25.0-31.3); PROTIME 9.9 Seconds (9.20-11.50)
[2020-06-27 16:38] LABS: BF RBC 1307 /mm3; TOTAL CELL COUNT 1170 /mm3
--- NOTE | 2020-06-27 16:46 | EKG ---
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 : 1975 Requested By: Roc Ellis Order Number: [id number] MD: Byron Marks Measurements Intervals [place] Rate: 81 P: 47 CO: 124 QRS: 22 QRSD: 99 T: 39 QT: 408 QTc: 474 Interpretive Statements Sinus rhythm Compared to ECG 09/05/2019 13:06:36 Sinus tachycardia no longer present Ventricular premature complex(es) no longer present Atrial abnormality no longer present T-wave abnormality no longer present Electronically Signed On 06-27-2020 16:46:25 CDT by Byron Marks [email or web address] <ELECTRONICALLY SIGNED> By: Byron Marks MD, FACC 06/27/20 1646 1240 1240 Byron Marks MD, FACC /EPI
[2020-06-27 17:03] LABS: BF LYMPHOCYTES 89 %; BF POLYS 11 %
[2020-06-27 17:05] LABS: CLARITY SLIGHTLY HAZY; TOTAL VOLUME 1500 ml
[2020-06-27 18:50] VITALS: BP 158/80
--- NOTE | 2020-06-27 19:36 | NUR ---
pt to room 227 from er. pt is alert, oriented and cooperative with staff. pt has no c/o pain or distress. skin is warm and dry to touch. pt assisted to bed. call light placed at her side. stable at this time. report to night custodian who will admit her. dr domingo also notified of her admission.
[2020-06-27 21:39] VITALS: BP 158/77
[2020-06-28 00:13] VITALS: BP 170/80
--- NOTE | 2020-06-28 02:35 | NUR ---
ASSUMED CARE OF PT AT 1900. PT IS ALERT AND ORIENTED. VSS. PERRLA. NO COMPLAINTS OF PAIN. PT IS ON A LASIX DRIP. PT IS IN SINUS RYTHM ON THE TELEMETRY. PT IS RESTING COMFORTABLY IN BED. RESPIRATIONS ARE EVEN AND NONLABORED. WILL CONTINUE TO MONITOR PT.
[2020-06-28 04:55] VITALS: BP 149/79
[2020-06-28 05:45] LABS: HEMATOCRIT 32.1 % (37.0-47.0); HEMOGLOBIN 11.4 gm/dL (12.0-15.0); MCH 32.4 pg (26.0-34.0); MCHC 35.4 g/dL (28.0-37.0); MCV 91.3 fL (80.0-100.0); MPV 7.6 fl. (7.2-11.1); RBC 3.52 mil/uL (4.20-5.00); RDW-CV 12.4 % (10.5-14.5); WBC 10.5 thou/uL (4.0-11.0)
[2020-06-28 05:58] LABS: ALBUMIN 2.3 g/dL (3.4-5.0); CALCIUM 8.2 mg/dL (8.5-10.1); CREATININE 2.4 mg/dL (0.6-1.3); POTASSIUM 3.9 mmol/L (3.5-5.1); TOTAL BILIRUBIN 0.5 mg/dL (<0.1-1.0); TOTAL PROTEIN 6.3 g/dL (6.4-8.2)
[2020-06-28 08:00] VITALS: BP 143/80; BP 99/67
[2020-06-28 13:04] VITALS: BP 151/78
[2020-06-28 17:00] VITALS: BP 159/77
[2020-06-28 20:00] VITALS: BP 174/75
[2020-06-29 00:28] VITALS: BP 143/57
[2020-06-29 03:30] VITALS: BP 173/95
[2020-06-29 03:48] LABS: CALCIUM 8.4 mg/dL (8.5-10.1); CREATININE 2.5 mg/dL (0.6-1.3); MAGNESIUM 1.8 mg/dL (1.8-2.4); POTASSIUM 3.4 mmol/L (3.5-5.1)
[2020-06-29] MEDS ORDERED: LOTREL 5-20 MG1 EACH PO (04:07)
[2020-06-29] MEDS ORDERED: CARVEDILOL25 MG PO (04:09)
--- NOTE | 2020-06-29 06:45 | NUR ---
Alert and oriented x 4. She is up to the bedside commode independently. We are doing accurate I & O. BP has been elevated this shift,patient stated that her BP meds are different than what we had on EMAR. Message sent to You Call MD. She denies any discomfort. She has slept well.
[2020-06-29 08:00] VITALS: BP 147/85
[2020-06-29 13:14] VITALS: BP 142/61
[2020-06-29 17:35] VITALS: BP 142/62
[2020-06-29 20:15] VITALS: BP 165/87
[2020-06-30] VITALS: BP 147/71
[2020-06-30 02:59] VITALS: BP 137/83
--- NOTE | 2020-06-30 03:39 | NUR ---
PATIENT HAS REMAINED ALERT AND ORIENTED X 4 THROUGHOUT THE SHIFT AND RESTING QUIETLY ON HOURLY ROUNDS. UP INDEPENDENTLY TO BSC. LARGE URINE OUTPUT. IMPROVING LE EDEMA. LASIX DRIP CONTINUES PER ORDER. PATIENT DECLINES LE WRAPS OR BETADINE APPLICATION. POTASSIUM REPLACEMENT; RE-CHECK PENDING. VITAL SIGNS STABLE. SR ON THE MONITOR. CONTINUE TO MONITOR.
[2020-06-30 04:33] LABS: HEMATOCRIT 31.6 % (37.0-47.0); HEMOGLOBIN 11.2 gm/dL (12.0-15.0); MCH 32.1 pg (26.0-34.0); MCHC 35.4 g/dL (28.0-37.0); MCV 90.8 fL (80.0-100.0); MPV 7.8 fl. (7.2-11.1); RBC 3.48 mil/uL (4.20-5.00); RDW-CV 12.4 % (10.5-14.5); WBC 9.2 thou/uL (4.0-11.0)
[2020-06-30 05:02] LABS: ALBUMIN 2.2 g/dL (3.4-5.0); CALCIUM 8.2 mg/dL (8.5-10.1); CREATININE 2.9 mg/dL (0.6-1.3); POTASSIUM 3.9 mmol/L (3.5-5.1); TOTAL BILIRUBIN 0.3 mg/dL (<0.1-1.0); TOTAL PROTEIN 6.3 g/dL (6.4-8.2)
[2020-06-30 08:30] VITALS: BP 159/84
[2020-06-30 12:00] VITALS: BP 173/89
--- NOTE | 2020-06-30 12:12 | NUR ---
Nutrition: Pt admitted with renal failure. RD has seen pt before and discussed diet. Pt was able to give accurate diet recall concerning Na and CHOs. Pt understands these diets, but admits to not always following them. She understands her CHO to insulin ratio at home. She had a few questions today about nutrition and DM - all questions answered. Good appetite on 2gm Na diet - she refused a CHO count to be added. Labs: BG 163, alb 2.2, prealb 18.5. Wt: 280#. Will see how renal FXN unfolds. No other educ at this time. Mild risk.
--- NOTE | 2020-06-30 12:51 | 2DMMODE ---
[place] [address] 2 D/M-MODE ECHOCARDIOGRAM Name: JENI ZELAYA ALBINA Room: [place] [address] ADM IN M.R.#: [id number] Admission: 06/27/20 Attend Phys: Sharon Ford, Discharge: Date of : 73 Date of Service: 06/30/20 1250 Report #: [id number] THIS REPORT FOR: cc: Karl Thomson MD, Dean L. MD Liston, Michael J. MD [facility] ~ APPROVED REPORT Study performed: 06/30/2020 11:51:30 EXAM: Comprehensive 2D, Doppler, and color-flow Echocardiogram Patient Location: Bedside BSA: 2.33 HR: 88 bpm BP: 137/83 mmHg Other Information Study Quality: Fair Indications Congestive Heart Failure 2D Dimensions IVSd: 13.04 (7-11mm) LVOT Diam: 20.46 (18-24mm) LVDd: 54.67 mm PWd: 14.23 (7-11mm) Ascending Ao: 30.21 (22-36mm) LVDs: 42.52 (25-40mm) Aortic Root: 30.14 mm Volumes Left Atrial Volume (Systole) LA ESV Index: 22.70 mL/m2 Aortic Valve AoV Peak Shawn.: 1.10 m/s AO Peak Gr.: 4.87 mmHg LVOT Max P.79 mmHg AO Mean Gr.: 3.03 mmHg LVOT Mean P.02 mmHg LVOT Max V: 0.97 m/s AO V2 VTI: 21.12 cm LVOT Mean V: 0.66 m/s SHIVAM (VTI): 3.03 cm2 LVOT V1 VTI: 19.49 cm Mitral Valve E/A Ratio: 0.80 [place] [address] 2 D/M-MODE ECHOCARDIOGRAM Name: JENI ZELAYA Room: [address] IN ..#: [id number] Admission: 06/27/20 Attend Phys: Sharon Ford, Discharge: Date of : 73 Date of Service: 06/30/20 1250 Report #: [id number] MV Decel. Time: 256.92 ms MV E Max Shawn.: 0.80 m/s MV PHT: 74.51 ms MVA (PHT): 2.95 cm2 TDI E/Lateral E': 10.00 E/Medial E': 10.00 Medial E' Shawn.: 0.08 m/s Lateral E' Shawn.: 0.08 m/s Pulmonary Valve PV Peak Shawn.: 0.87 m/s PV Peak Gr.: 3.03 mmHg Left Ventricle The left ventricle is normal size. There is normal LV segmental wall motion. Mild concentric left ventricular hypertrophy. Left ventricular systolic function is normal. LVEF is 50-55%. Grade I - abnormal relaxation pattern. Right Ventricle The right ventricle is normal size. The right ventricular systolic function is normal. Atria The left atrium size is normal. The right atrium size is normal. Aortic Valve The aortic valve is normal in structure. No aortic regurgitation is present. There is no aortic valvular stenosis. Mitral Valve Mitral valve leaflets are calcified. Trace mitral regurgitation. No evidence of mitral valve stenosis. Tricuspid Valve The tricuspid valve is normal in structure. There is no tricuspid valve regurgitation noted. Pulmonic Valve The pulmonary valve is normal in structure. There is no pulmonic valvular regurgitation. Great Vessels The aortic root is normal in size. IVC is normal in size and collapses >50% [place] [address] 2 D/M-MODE ECHOCARDIOGRAM Name: JENI ZELAYA Room: [address] IN [facility]#: [id number] Admission: 06/27/20 Attend Phys: Sharon Ford, Discharge: Date of : 73 Date of Service: 06/30/20 1250 Report #: [id number] Pericardium There is no pericardial effusion. <Conclusion> The left ventricle is normal size. Mild concentric left ventricular hypertrophy. Left ventricular systolic function is normal. LVEF is 50-55%. Grade I - abnormal relaxation pattern. Trace mitral regurgitation. IVC is normal in size and collapses >50% with inspiration. <ELECTRONICALLY SIGNED> By: Wade Hughes MD, FACC 06/30/201249 49 49 Wade Hughes MD, FACC /INF
--- NOTE | 2020-06-30 13:01 | NUR ---
CM SPOKE TO THE PT TO DISCUSS HER HOME SITUAATION, DISCHARGE PLANNING, AND TO INFORM OF THE ROLE OF CM. PT A&O, INDEPENDENT WITH ADL'S, AND WORKS. PT RESIDES AT HOME WITH A FRIEND. PT USES HOME NEBULIZER. NO OTHER DME. PT HAS PAST HX OF HH WITH [facility]. PT HAS 0 HX OF SNF. CM WILL REMAIN AVAILABLE TO ASSIST WITH D/C PLANNING.
--- NOTE | 2020-06-30 14:19 | NUR ---
WOUND NURSE: PATIENT SEEN TO ADDRESS OLD ABRASION ON THE RIGHT PRETIBIAL ASPECT OF THE RT. LE. PRESENTS A HEALING ABRASION CONTAINING HYPERPIGMENTED SCARING AND WITH CRUST IN THE CENTER OF THE WOUND WHICH WAS LIFTED OFF EXPOSING A PARTIAL THICKNESS LESION OF PINK NONGRANULATNG TISSUE AND SCANT SEROUSANGUINOUS DRAINAGE. CLEANSED WIH SALINE AND GAUZE. APPLIED SKIN PREP TO INTACT PERIWOUND TISSUE, THEN COVERED WITH SALINE MOISTENED PURACHOL PLUS AG, THEN COVERD WITH SURESITE TRANSPARENT DRESSING. THIS WAS TOLERATED WELL BY THE PATIENT. INSTRUCTED ON MEASURES TO PROMOTE MOIST WOUND HEALING AND PREVENT COMPLICATIONS INCLUDING ADEQUATE NUTRITIONAL INTAKE AND GOOD BLOOD GLUCOSE MANAGEMENT.
[2020-06-30 16:00] VITALS: BP 165/81
[2020-06-30 19:40] VITALS: BP 154/75
--- NOTE | 2020-06-30 19:42 | NUR ---
pt has remained alert and oriented x 4 this shift. no c/o pain or distress. potential for dismissal tomorrow. ua to be collected. this was reported to nightclub manager rn to be done.
[2020-07-01] VITALS: BP 170/86
[2020-07-01 04:00] VITALS: BP 149/79
[2020-07-01 04:40] LABS: HEMATOCRIT 33.2 % (37.0-47.0); HEMOGLOBIN 11.7 gm/dL (12.0-15.0); MCH 31.9 pg (26.0-34.0); MCHC 35.2 g/dL (28.0-37.0); MCV 90.6 fL (80.0-100.0); MPV 7.4 fl. (7.2-11.1); RBC 3.66 mil/uL (4.20-5.00); RDW-CV 12.3 % (10.5-14.5); WBC 10.4 thou/uL (4.0-11.0)
[2020-07-01 05:06] LABS: ANION GAP 7 mmol/L (7-16); BUN 38 mg/dL (7-18); CALCIUM 8.5 mg/dL (8.5-10.1); CHLORIDE 102 mmol/L (98-107); CHOLESTEROL 203 mg/dL (<200); CO2 27 mmol/L (21-32); CREATININE 2.6 mg/dL (0.6-1.3); GLUCOSE 109 mg/dL (70-99); HDL CHOLESTEROL 34 mg/dL (>40); LDL CHOLESTEROL 116 mg/dL (<100); POTASSIUM 4.1 mmol/L (3.5-5.1); SODIUM 136 mmol/L (136-145); TRIGLYCERIDE 267 mg/dL (<150); VLDL 53 mg/dL (<40)
[2020-07-01 05:10] LABS: SERUM ASSESSMENT Clear
--- NOTE | 2020-07-01 08:02 | CON ---
[address] [address] CONSULTATION Name: JENI ZELAYA Room: [place] [address] ADM IN .R.#: [id number] Admission: 06/27/20 Attend Phys: Sharon Ford MD Discharge: Date of : 73 Report #: [id number] THIS REPORT FOR: //name// cc: Karl Thomson MD, Dean L. MD ~ DATE OF SERVICE: 06/28/2020 CARDIOLOGY CONSULTATION HISTORY OF PRESENT ILLNESS: I was asked by Dr. Ford to see this 44-year-old white female admitted with acute on chronic congestive heart failure with diastolic type. This lady was first diagnosed with diastolic heart failure back in September. She was seen by Dr. Hughes at that time. She has unfortunately not been back to see him since then, although she did see our nurse practitioner in the office a few days ago. This lady came in with 10 days of increasing shortness of breath with dyspnea on exertion, orthopnea, PND and edema. She was found to have a large left pleural effusion. Yesterday, she had a thoracentesis to reduce it. I believe some 1400 mL was taken off. She has acute hypoxemic respiratory failure and some acute kidney injury, that is she has elevation of her creatinine. She does have insulin-dependent diabetes mellitus. Her shortness of breath has been coming on for about 10 days she says. This lady's coronary risk factors include smoking a half pack per day. She was told by me today in no uncertain terms to stop smoking today. She does have the insulin-dependent diabetes mellitus. She denies hypercholesterolemia. She does have high blood pressure. There is a family history of coronary artery disease. She does have mild creatinine elevation currently. She has had a TIA in the past. She does not have any history of any peripheral vascular disease or carotid disease or open or nonhealing wounds or claudication. ALLERGIES: SHE IS ALLERGIC TO METFORMIN, WHICH CAUSES SEVERE NAUSEA. MEDICATIONS: Her medications at home include albuterol p.r.n., bupropion 75 mg daily, lisinopril 5 mg daily, gabapentin 300 mg at bedtime, glargine insulin and lispro insulin in a variable amount. She is on Protonix 40 mg daily, aspirin 81 mg daily. She was on Lasix 40 mg daily and that was recently discontinued. She was put on Bumex 1 mg daily. She has had a toe amputation 10 and 11 months ago. She had 3 different hospital stays for that. FAMILY HISTORY: Her paternal grandmother had high blood pressure. Maternal uncle had a heart attack. SOCIAL HISTORY: She is . 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 Drinks 8-9 beers a week and smokes a half pack a day; again she was [place] [address] CONSULTATION Name: JENI ZELAYA ALBINA Room: [address] IN [facility]#: [id number] Admission: 06/27/20 Attend Phys: Sharon Ford MD Discharge: Date of : 73 Report #: [id number] REVIEW OF SYSTEMS: Positive for cough, sputum production, pneumonia, shortness of breath with exercise, diabetes, vomiting, cervical cancer, SEASONAL ALLERGIES, METFORMIN ALLERGY OR SENSITIVITY, anxiety and depression, psoriasis, some vision loss; she has had LASIK and she has decreased hearing. Otherwise, review of systems is negative for some 35 different complaints in 14 different system categories. Please see our review of system form for details and negatives in review of systems. PHYSICAL EXAMINATION: GENERAL: She presents as well-developed, well-nourished, obese white female, in no acute distress. VITAL SIGNS: Her pulse was 70 and regular, blood pressure is 149/79, respirations 20 and regular, temperature is 98.6. HEENT: Her head was atraumatic. Eyes clear. NECK: Supple. There is no jugular venous distention or hepatojugular reflux. Thyroid is not enlarged. There is no adenopathy. SKIN: Warm and dry. Mucous membranes are moist. LUNGS: Clear to auscultation and percussion, but there are decreased breath sounds in both bases. HEART: Revealed normal first and second heart sounds. There is soft S4. There is no S3. There are no murmurs, rubs, thrills, heaves or gallops. PMI is not displaced. The rhythm is regular, rate was approximately 80. ABDOMEN: Soft, flat, obese and nontender. No palpable masses. No organomegaly. EXTREMITIES: Reveal no cyanosis, clubbing or edema. There was 2+ ankle and pedal edema. LABORATORY DATA: Her troponins were negative x 3. Her BNP was 3372. Her creatinine when she first came in was 2.2; today it is 2.4. Her BUN was 25 today and yesterday. Her potassium was 3.9 today, 4.2 yesterday. Hemoglobin was 11.6, white count 10.5. Her chest x-ray demonstrated diffuse pulmonary edema, moderate-sized left pleural effusion. Renal ultrasound was unremarkable. A lung scan revealed only a perfusion defect secondary to the left pleural effusion. Her EKG shows normal sinus rhythm and is a normal EKG. IMPRESSION: 1. Acute on chronic diastolic congestive heart failure. 2. Left pleural effusion. 3. Acute hypoxic respiratory failure. 4. Acute kidney injury. 5. Insulin-dependent diabetes mellitus. 6. Hypercholesterolemia. RECOMMENDATION: I would diurese her. As she is being diuresed, she is on the Lasix drip. I would get her on all her home medicines. [address] [address] CONSULTATION Name: FAWAD ZELAYAPaulo MONTEMAYOR Room: [address] IN [facility]#: [id number] Admission: 06/27/20 Attend Phys: Sharon Ford MD Discharge: Date of : 73 Report #: [id number] Thank you very much for asking me to see the patient. If there are any questions, please feel free to contact me. <ELECTRONICALLY SIGNED> By: Liya Levy MD, FACC 07/01/20 0802 1155 [id number]. Ez Levy MD, FACC /nt
[2020-07-01 12:00] VITALS: BP 173/83
--- NOTE | 2020-07-01 13:06 | NUR ---
CM INFORMED DURING PRIME ROUNDING OF THE PLAN OF CARE FOR THE PT INCLUDING PENDING CARDIOLOGY CONSULT AND PENDING LABS. CM WILL REMAIN AVAILABLE TO ASSIST AND FOLLOW NEEDED.
[2020-07-01 16:00] VITALS: BP 142/70
--- NOTE | 2020-07-01 20:17 | NUR ---
PT HAS REMAINED ALERT AND ORIENTED X 4. NO C/O PAIN OR SHORTNESS OF BREATH.
[2020-07-02] VITALS: BP 152/75
[2020-07-02 04:37] VITALS: BP 148/72
[2020-07-02 05:36] LABS: HEMATOCRIT 31.7 % (37.0-47.0); HEMOGLOBIN 11.1 gm/dL (12.0-15.0); MCH 31.7 pg (26.0-34.0); MCHC 34.9 g/dL (28.0-37.0); MCV 90.7 fL (80.0-100.0); MPV 7.8 fl. (7.2-11.1); RBC 3.5 mil/uL (4.20-5.00); RDW-CV 12.3 % (10.5-14.5); WBC 10.3 thou/uL (4.0-11.0)
[2020-07-02 05:54] LABS: ALBUMIN 2.4 g/dL (3.4-5.0); CALCIUM 8.3 mg/dL (8.5-10.1); CREATININE 2.6 mg/dL (0.6-1.3); MAGNESIUM 1.9 mg/dL (1.8-2.4); POTASSIUM 4.1 mmol/L (3.5-5.1); TOTAL BILIRUBIN 0.3 mg/dL (<0.1-1.0); TOTAL PROTEIN 6.3 g/dL (6.4-8.2)
[2020-07-02] MEDS ORDERED: METOPROLOL TART25 MG PO (07:34)
[2020-07-02] MEDS ORDERED: BUMETANIDE 1 MG1 M1 PO (07:34)
[2020-07-02 08:00] VITALS: BP 165/83
[2020-07-02 10:42] VITALS: BP 165/83
[2020-07-02 11:27] LABS: URINE BILIRUBIN NEGATIVE (Negative); URINE BLOOD TRACE (Negative); URINE CLARITY CLEAR; URINE COLOR YELLOW; URINE GLUCOSE-RANDOM 1+ (Negative); URINE KETONES NEGATIVE (Negative); URINE LEUKOCYTES NEGATIVE (Negative); URINE NITRITE NEGATIVE (Negative); URINE PROTEIN 3+ (Negative); URINE UROBILINOGEN 0.2 E.U./dl (0.2-1.0)
[2020-07-02 11:44] LABS: SQUAMOUS >10 Many /LPF (0-3)
[2020-07-02 11:45] LABS: URINE RBC 0-2 Rare /HPF (0-2); URINE WBC 0-5 Rare /HPF (0-5)
[2020-07-02 11:46] LABS: CRYSTALS None Seen /LPF (None Seen); HYALINE CASTS 0-3 Few /LPF (None Seen); MUCUS 4-6 Moderate strn/LPF (None Seen)
--- NOTE | 2020-07-02 12:48 | NUR ---
ASSUMED PT CARE AT 0730, PT AOX4, NO C/O PAIN OR SHORTNESS OF BREATH. PT UP AD MALOU, TUBIGRIPS IN PLACE TO BILAT LE'S. DC ORDERS RECEIVED. DC INSTRUCTIONS, CARE NOTES, SCRIPTS AND F/U APPTS GIVEN TO PT. PT COMMUNICATES UNDERSTANDING OF DC TEACHING. IV AND LOBSTERMAN REMOVED. PT DC'D BY WC W/ NURSING STAFF W/ ALL PERSONAL BELONGINGS AND PAPERWORK TO HUSBANDS VEHICLE AT APPROX 1230
--- NOTE | 2020-07-03 14:05 | CON ---
[address] [address] CONSULTATION Name: JENI ZELAYA Room: [address] IN .R.#: [id number] Admission: 06/27/20 Attend Phys: Sharon Ford MD Discharge: 07/02/20 Date of : 73 Report #: [id number] THIS REPORT FOR: //name// cc: Karl Thomson MD, Dean L. MD ~ DATE OF SERVICE: 06/29/2020 REQUESTING PHYSICIAN: Dr. Ford. REASON FOR CONSULTATION: Acute kidney injury. HISTORY OF PRESENT ILLNESS: The patient is a 44-year-old white female with medical history significant for: 1. Diabetes mellitus type 2. 2. History of chronic kidney disease stage 3. 3. History of congestive heart failure was due to diastolic dysfunction. 4. History of osteomyelitis. 5. History of obesity. The patient presents to the hospital with complaints of progressive shortness of breath. She was found to have congestive heart failure with a left pleural effusion and had thoracentesis done feels better now. She was also diuresed. Cardiology placed on Lasix drip. Her creatinine on admission was 2.2, it is up to 2.5 now. Creatinine in the past was around 1.2-1.3. She had renal ultrasound done, which was unremarkable. SOCIAL HISTORY: Positive for tobaccoism and about 1 beer a day she drinks. FAMILY HISTORY: Positive for diabetes and hypertension. REVIEW OF SYSTEMS: Positive for symptoms as mentioned earlier. PHYSICAL EXAMINATION: GENERAL: She is awake, alert, oriented, no acute distress. VITAL SIGNS: Blood pressure 143/57, but was as high as 194/107 yesterday. Heart rate 82. She is afebrile. HEENT: Pupils are round. NECK: Fatty. JVD is not elevated. LUNGS: Clear. CARDIOVASCULAR: Regular rate. ABDOMEN: Soft. LOWER EXTREMITIES: Trace edema. ASSESSMENT: 1. Acute kidney injury, probably multifactorial. [place] [address] CONSULTATION Name: JENI ZELAYA ALBINA Room: [address] IN [facility].#: [id number] Admission: 06/27/20 Attend Phys: Sharon Ford MD Discharge: 07/02/20 Date of : 73 Report #: [id number] had decompensated heart failure and also was diuresed, not sure if the rapid diuresis has affected her. It is recorded that she had 4000 mL of urine over the last 24 hours, but she seems to be euvolemic to me. 2. Chronic kidney disease stage 3, likely due to diabetic nephropathy. 3. Diabetes mellitus type 2. 4. Fluid overload with left pleural effusion, diastolic heart dysfunction. PLAN: I will defer diuresis to Cardiology, but we had to be very careful not to diurese her rapidly. She already feels better, so maybe we can switch her from Lasix drip to p.o. diuretics. Follow renal function carefully and make sure blood pressure controlled. I would avoid YANETH inhibitors. She is on lisinopril 5 mg a day. I would prefer her to be on a different blood pressure medication. <ELECTRONICALLY SIGNED> By: Ruddy Veronica MD 07/03/20 1405 0847 [id number] Veronica MD /nt
== END 2020-07-02 12:40 | disposition home or self-care (01) | DRG 291 ==
LOC: M.ERS 11:37 → M.2W 13:17 → M.TBA-ER 13:17 → M.2W 19:01
PROVIDERS: Emergency Medicine Emergency Medical Services; Internal Medicine; Internal Medicine Nephrology; ADMIT Internal Medicine; ATTEND Internal Medicine
PROC: 0W9B30Z Drainage of Left Pleural Cavity with Drainage Device, Percutaneous Approach (ICD-10-PCS; principal; 2020-06-28)
DX: I13.0 Hypertensive heart and chronic kidney disease with heart failure and stage 1 through stage 4 chronic kidney disease, or unspecified chronic kidney disease (principal); I50.33 Acute on chronic diastolic (congestive) heart failure; J96.01 Acute respiratory failure with hypoxia; R65.11 Systemic inflammatory response syndrome (SIRS) of non-infectious origin with acute organ dysfunction; N17.9 Acute kidney failure, unspecified; J91.8 Pleural effusion in other conditions classified elsewhere; E11.22 Type 2 diabetes mellitus with diabetic chronic kidney disease; E78.5 Hyperlipidemia, unspecified; E78.00 Pure hypercholesterolemia, unspecified; N18.30 Chronic kidney disease, stage 3 unspecified; Z20.828 Contact with and (suspected) exposure to other viral communicable diseases; Z85.41 Personal history of malignant neoplasm of cervix uteri; Z89.429 Acquired absence of other toe(s), unspecified side; Z79.899 Other long term (current) drug therapy; Z79.82 Long term (current) use of aspirin; Z79.4 Long term (current) use of insulin; Z88.8 Allergy status to other drugs, medicaments and biological substances; Z87.891 Personal history of nicotine dependence

== ENCOUNTER → 2020-07-04 | Outpatient (CLI) | payer OTHER ==
[~2020-07-04] MED LIST changes: +BUMETANIDE 1 MG1 M1 PO; +CARVEDILOL25 MG PO; +LOTREL 5-20 MG1 EACH PO; +METOPROLOL TART25 MG PO
[2020-07-04 12:20] LABS: CREATININE 2.8 mg/dL (0.6-1.3); POTASSIUM 4.1 mmol/L (3.5-5.1)
== END ==
LOC: M.LAB 11:27
PROVIDERS: ATTEND Registered Nurse
DX: I50.32 Chronic diastolic (congestive) heart failure (principal)

== ENCOUNTER → 2020-07-15 | Outpatient (CLI) | payer OTHER ==
[2020-07-15 17:12] LABS: CALCIUM 8.5 mg/dL (8.5-10.1); CREATININE 2.4 mg/dL (0.6-1.3); POTASSIUM 4.6 mmol/L (3.5-5.1)
== END ==
LOC: M.LAB 16:47
PROVIDERS: ATTEND Registered Nurse
DX: I50.32 Chronic diastolic (congestive) heart failure (principal); N18.9 Chronic kidney disease, unspecified

== ENCOUNTER → 2020-07-21 | Outpatient (CLI) | payer OTHER ==
[~2020-07-21] MED LIST changes: +GLIPIZIDE 10 MG10 MG PO; +TRELEGY ELLIPT1 EACH IH; +TRESIBA FL100 UNIT/1 SUBQ; +ULTRAM 50MG TAB50 MG PO
== END ==
LOC: M.RAD 14:40
PROVIDERS: ATTEND Registered Nurse
DX: I50.32 Chronic diastolic (congestive) heart failure (principal); J90 Pleural effusion, not elsewhere classified; R06.02 Shortness of breath

== ENCOUNTER 2020-07-23 12:53 | Inpatient (IN) | payer OTHER ==
[~2020-07-23] VITALS: Ht 172.7 cm; Wt 124.7 kg
[~2020-07-23 12:53] MED LIST changes: -GLIPIZIDE 10 MG10 MG PO; -TRELEGY ELLIPT1 EACH IH; -TRESIBA FL100 UNIT/1 SUBQ; -ULTRAM 50MG TAB50 MG PO
[2020-07-23 13:06] VITALS: BP 189/102
[2020-07-23 13:39] LABS: ABSOLUTE BASOPHILS 0.1 thou/uL (0.0-0.2); ABSOLUTE EOSINOPHILS 0.4 thou/uL (0.0-0.7); ABSOLUTE LYMPHOCYTES 1.9 thou/uL (0.8-5.3); ABSOLUTE MONOCYTES 0.9 thou/uL (0.0-1.2); ABSOLUTE NEUTROPHILS 8.1 thou/uL (1.6-8.1); BASOPHILS 0.5 %; EOSINOPHILS 3.7 %; HEMATOCRIT 32.8 % (37.0-47.0); HEMOGLOBIN 11.5 gm/dL (12.0-15.0); LYMPHOCYTES 16.7 %; MCHC 35.1 g/dL (28.0-37.0); MCV 91.3 fL (80.0-100.0); MONOCYTES 8.2 %; MPV 8.3 fl. (7.2-11.1); NUCLEATED RBCS 0 /100WBC; PLATELET COUNT* 253 thou/uL (150-400); POLYS 70.9 %; RBC 3.59 mil/uL (4.20-5.00); WBC 11.5 thou/uL (4.0-11.0)
[2020-07-23 13:50] LABS: CALCIUM 7.9 mg/dL (8.5-10.1); CREATININE 2.8 mg/dL (0.6-1.3); POTASSIUM 4.4 mmol/L (3.5-5.1)
[2020-07-23 14:07] LABS: ALBUMIN 2.6 g/dL (3.4-5.0); TOTAL BILIRUBIN 0.3 mg/dL (<0.1-1.0); TOTAL PROTEIN 6.6 g/dL (6.4-8.2)
[2020-07-23 16:30] VITALS: BP 171/90
[2020-07-23 16:39] VITALS: BP 179/78
--- NOTE | 2020-07-23 17:15 | EKG ---
[place] [address] ELECTROCARDIOGRAM REPORT Name: JENI ZELAYA Room: [address] ADM IN M.R.#: [id number] Admission: 07/23/20 Attend Phys: Sharon Ford, Discharge: Date of : 73 Date of Service: 07/23/20 1307 Report #: [id number] THIS REPORT FOR: //name// 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
[2020-07-23] MEDS ORDERED: CARVEDILOL25 MG PO (18:23)
[2020-07-23] MEDS ORDERED: GLIPIZIDE 10 MG10 MG PO (18:24)
[2020-07-23] MEDS ORDERED: HYDROCODON-ACE1 EAC7 PO (18:25)
[2020-07-23] MEDS ORDERED: TRAMADOL 50 MG50 MG PO (18:26)
[2020-07-23] MEDS ORDERED: ULTRAM 50MG TAB50 MG PO (18:27)
[2020-07-23] MEDS ORDERED: TRELEGY ELLIPT1 EACH IH (18:29)
[2020-07-23] MEDS ORDERED: TRESIBA FL100 UNIT/1 SUBQ (18:30)
[2020-07-23 20:00] VITALS: BP 151/76
[2020-07-24] VITALS (10 sets, daily range): BP systolic 94–171; BP diastolic 47–82
[2020-07-24 04:34] LABS: HEMATOCRIT 29.3 % (37.0-47.0); HEMOGLOBIN 10.3 gm/dL (12.0-15.0); MCH 32.3 pg (26.0-34.0); MCHC 35.3 g/dL (28.0-37.0); MCV 91.4 fL (80.0-100.0); MPV 8.5 fl. (7.2-11.1); RBC 3.2 mil/uL (4.20-5.00); RDW-CV 11.9 % (10.5-14.5); WBC 9.5 thou/uL (4.0-11.0)
[2020-07-24 04:54] LABS: CALCIUM 7.6 mg/dL (8.5-10.1); CREATININE 3.2 mg/dL (0.6-1.3); MAGNESIUM 1.8 mg/dL (1.8-2.4)
[2020-07-24 05:19] LABS: APTT 26.1 Seconds (25.0-31.3); PROTIME 10.6 Seconds (9.20-11.50)
--- NOTE | 2020-07-24 07:40 | NUR ---
ASSUMED CARE OF PT AFTER REPORT AT 1930. PT A&OX4. VSS. PHYSICAL ASSESSMENT COMPLETED AND CHARTED. PT ON RA. PT TRACING SR ON TELE. PT UPADLIB TO BSC. PT COMPLAINED OF HEADACHE-DR SAXENA MADE AWARE WITH NEW ORDER. MAINTAINED ON LASIX DRIP. PT INSTRUCTED NPO POST MIDNIGHT FOR POSSIBLE CARDIAC CATH & THORACENTESIS. COMMUNICATES UNDERSTANDING. PT ABLE TO SLEEP WELL ON BED. CALL LIGHT WITHIN REACH.
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
[2020-07-24 13:15] LABS: BE 0.1 mmol/L (-2 to +3); PCO2 VENOUS 45.2 mmHg (41.0-51.0); PO2 VENOUS 33.1 mmHg (35.0-45.0)
[2020-07-24 13:17] LABS: BE -0.8 mmol/L (-2 to +3); PCO2 VENOUS 43.7 mmHg (41.0-51.0); PO2 VENOUS 36.9 mmHg (35.0-45.0)
[2020-07-24 13:21] LABS: BE -2.4 mmol/L (-2 to +3); PCO2 VENOUS 38.4 mmHg (41.0-51.0); PO2 VENOUS 29.7 mmHg (35.0-45.0)
[2020-07-24 13:23] LABS: BE -29.1 mmol/L (-2 to +3)
[2020-07-24 13:30] LABS: pH 6.724 (7.340-7.450)
--- NOTE | 2020-07-24 13:30 | NUR ---
Pt is A&O. Resides at home with SO. Independent. Pt has a neb, no other DME. Hx of [facility]. No hx of SNF. Pt had cath today. Plan home at [place], anticipate dc in 1-2 more days. Following.
--- NOTE | 2020-07-24 15:11 | CARD ---
[address] [address] CARDIAC CATH REPORT Name: JENI ZELAYA Room: [address] IN [facility]#: [id number] Admission: 07/23/20 Attend Phys: Sharon Ford MD Discharge: Date of : 73 Report #: [id number] THIS REPORT FOR: //name// cc: Karl Thomson MD, Dean L. MD ~ APPROVED REPORT Study performed: 07/24/2020 12:23:16 Patient Details Patient Status: In-Patient Room #: 213 The patient is a 44 year-old female Event Personnel Mark Hansen RTR Monitor, Gama Mcguire Subedi, Sujita RN RN, Wade Hughes Director Of Labor And Delivery Procedures Performed Right Heart Cath Only [id number] RHC Hemostasis w/ Mynx Indication CHF Current Status: Yes Admission/Lab Medications/Medications given during procedure Lidocaine Subcut 20 ml, Fentanyl IV 25 mcg, Midazolam (Versed) IV 1 mg Procedure Narrative The patient was brought electively to the Cardiac Catheterization Laboratory and was prepped and draped in a sterile manner. The right femoral was infiltrated with 2% Lidocaine subcutaneous anesthesia. A Right Heart Catheterization was performed with a 7 Fr. Elida-Domitila catheter and pressure were recorded. Cardiac outputs were obtained by the Thermal Dilution method. A 7Fr x 11cm Terri sheath was inserted into the right femoral vein. Coronary angiography was performed using coronary diagnostic catheters. Closure device was deployed with a 6 Fr Mynx. The patient tolerated the procedure well and there were no complications associated with the procedure. There was no hematoma. Intraoperative Conscious Sedation Sedation start time: 1233 Case end Time: 1242 Fentanyl 25 mcg Versed 1 [place] [address] CARDIAC CATH REPORT Name: JENI ZELAYA ALBINA Room: [address]#: [id number] Admission: 07/23/20 Attend Phys: Sharon Ford MD Discharge: Date of : 73 Report #: [id number] Fluoro Time: 0.9 minutes Dose: DAP 7894 cGycm2 67.45 mGy Contrast Type and Amount: 0 Hemodynamics The right atrial mean pressure is 7 mmHg. The right ventricular pressure is 37/6 mmHg. The pulmonary artery pressure is 34/14 mmHg with a mean of 19 mmHg. The mean pulmonary capillary wedge pressure is 11 mmHg. PaO2 saturation is 57.40 %. Arterial saturation is 91.80 %. The cardiac output using the Andres method is 5.98 L/min. The cardiac index using the Andres method is 2.61 L/min/m2. The cardiac output using thermo method is 6.24 L/min. The cardiac index using thermo method is 2.72 L/min/m2. Conclusion 1. Right heart catheterization reveals minimally elevated right heart pressures. Significant pulmonary hypertension is not seen. 2. Normal cardiac output. 3. Normal pulmonary capillary wedge pressure. 4. Normal O2 saturation run with no evidence of shunt. Recommendations 1. Continue current management of congestive heart failure. <ELECTRONICALLY SIGNED> By: Wade Hughes MD, FACC 07/24/20 1510 09 151Michaeti Hughes MD, FACC /INF
--- NOTE | 2020-07-24 20:00 | NUR ---
RECEIVED REPORT AND ASSUMED CARE OF PT, ASSESSMENT COMPLETED. GAIT STEADY ABOUT ROOM, UP FREQ TO BSC. PT HAS 1+ GENERAL EDEMA. RT GROIN SITE WIITHOUT REDNESS, EDEMA OR HEMATOMA. DENIES CHEST PAIN OR SOA. TELEMETRY ON SHOWING SR. WILL CONT TO MONITOR AND ASSIST NEEDED.
[2020-07-25 00:12] VITALS: BP 149/85
[2020-07-25 04:00] VITALS: BP 144/78
[2020-07-25 04:10] LABS: HEMATOCRIT 30.5 % (37.0-47.0); HEMOGLOBIN 10.9 gm/dL (12.0-15.0); MCH 32.2 pg (26.0-34.0); MCHC 35.7 g/dL (28.0-37.0); MCV 90.3 fL (80.0-100.0); MPV 8.8 fl. (7.2-11.1); RBC 3.38 mil/uL (4.20-5.00); RDW-CV 12.2 % (10.5-14.5); WBC 10.6 thou/uL (4.0-11.0)
[2020-07-25 04:42] LABS: ALBUMIN 2.2 g/dL (3.4-5.0); CALCIUM 7.6 mg/dL (8.5-10.1); CREATININE 3.2 mg/dL (0.6-1.3); MAGNESIUM 1.8 mg/dL (1.8-2.4); TOTAL BILIRUBIN 0.4 mg/dL (<0.1-1.0)
--- NOTE | 2020-07-25 05:57 | NUR ---
SLEPT WELL TONIGHT. NO CHANGE IN ASSESSMENT. TELEMETRY CONT TO SHOW SR. HS GOALS OF REST AND SAFETY ACHIEVED. HOURLY ROUNDING OBSERVED.
[2020-07-25 08:05] VITALS: BP 138/59
--- NOTE | 2020-07-25 11:14 | NUR ---
ASSUMED CARE OF PT THIS AM AROUND 0715- SHOT BLASTER IN PLACE ORDERED, TRACING SR- UPON ASSESSMENT PT NOTED TO BE RESTING IN BED- PT A&O X4, DROWSY THIS AM- CONT OF B/B- UP AD-MALOU IN ROOM, STEADY GAIT NOTED- WHEEZES NOTED WITH CRACKLES NOTED TO LF LUNG BASES- RESP EVEN AND UN-LABORED- VSS, O2 SAT 93% ON RA- ABD SOFT/OBESE/NON-TENDER, BS X4 QUADS- LAST BM REPORTED THIS AM-GOOD PO INTAKE NOTED THIS AM WITH BREAKFAST, BS MONITORED ORDERED WITH INSULIN GIVEN PRESCRIBED- IV NOTED TO RIGHT FA INTACT AND SL-TRACE EDEMA NOTED TO BLE- CHEST X-RAY COMPLETED THIS AM WITH RESULTS NOTED IN MEDITECH- PT DENIES ANY C/O PAIN/DISCOMFORT AT THIS TIME- CALL LIGHT AND PERSONAL BELONGINGS WITH IN REACH- ALL NEEDS MET AT THIS TIME-WCTM
[2020-07-25 12:00] VITALS: BP 146/71
--- NOTE | 2020-07-25 14:11 | CON ---
[address] [address] CONSULTATION Name: JENI ZELAYA Room: [address] IN M.R.#: [id number] Admission: 07/23/20 Attend Phys: Sharon Ford MD Discharge: Date of : 73 Report #: [id number] THIS REPORT FOR: //name// cc: Karl Thomson MD, Dean L. MD ~ DATE OF SERVICE: 07/24/2020 REQUESTING PHYSICIAN: Dr. Ford. REASON FOR CONSULTATION: Acute kidney injury on top of the chronic kidney disease. HISTORY OF PRESENT ILLNESS: The patient is a 44-year-old female, very well known to me. I saw her just about 2 weeks ago. She was admitted with acute kidney injury and CHF exacerbation. Medications were adjusted. She will be discharged home. Her serum creatinine at discharge was 2.8. She got readmitted with complaints of some shortness of breath on exertion, was found to have a recurrent left pleural effusion and CHF exacerbation. She has diastolic dysfunction. Her creatinine is 3.2. PAST MEDICAL HISTORY: She has history of diabetes mellitus type 2, COPD, tobaccoism. Unfortunately, continues to smoke. SOCIAL HISTORY: Tobaccoism. FAMILY HISTORY: Positive for diabetes, hypertension. REVIEW OF SYSTEMS: Positive for dyspnea on exertion. MEDICATIONS: Reviewed. PHYSICAL EXAMINATION: GENERAL: She is awake, alert, oriented, no acute distress. VITAL SIGNS: Today, blood pressure 143/76, heart rate 73, afebrile. HEENT: Pupils are round. NECK: Fatty. LUNGS: Decreased air movement. CARDIOVASCULAR: Regular rate. ABDOMEN: Soft. LOWER EXTREMITIES: Some edema. ASSESSMENT: 1. Progressive renal disease, likely progressively losing her kidney function due to advanced diabetic nephropathy. She does not need dialysis at this point, [place] [address] CONSULTATION Name: JENI ZELAYA ALBINA Room: [address]#: [id number] Admission: 07/23/20 Attend Phys: Sharon Ford MD Discharge: Date of : 73 Report #: [id number] but looks like she is heading towards dialysis. 2. Diastolic dysfunction. 3. Tobaccoism. 4. Chronic obstructive pulmonary disease. 5. Diabetes mellitus type 2. PLAN: I will defer diuresis to Cardiology again. Unfortunately at this point, most likely ____ she will require dialysis in the near future. I discussed dialysis with the patient and her family. <ELECTRONICALLY SIGNED> By: Ruddy Veronica MD 07/25/20 1411 1520 [id number] Veronica MD /PMT
--- NOTE | 2020-07-25 15:08 | NUR ---
Plan home at [place], possibly tomorrow. No needs.
[2020-07-25 16:00] VITALS: BP 147/78
--- NOTE | 2020-07-25 20:00 | NUR ---
RECEIVED REPORT AND ASSUMED CARE OF PT, ASSESSMENT COMPLETED. PT SHOWERED. TELEMETRY REAPPLIED SHOWING SR. NO SOA NOTED. 1+ MARTA LOWER LEG EDEMA. WILL CONT TO MONITOR AND ASSIST NEEDED.
[2020-07-26] VITALS: BP 129/72
[2020-07-26 04:00] VITALS: BP 151/64
[2020-07-26 05:03] LABS: ABSOLUTE BASOPHILS 0.1 thou/uL (0.0-0.2); ABSOLUTE EOSINOPHILS 0.4 thou/uL (0.0-0.7); ABSOLUTE LYMPHOCYTES 2.1 thou/uL (0.8-5.3); ABSOLUTE MONOCYTES 0.9 thou/uL (0.0-1.2); ABSOLUTE NEUTROPHILS 7.5 thou/uL (1.6-8.1); EOSINOPHILS 3.6 %; HEMATOCRIT 30.6 % (37.0-47.0); HEMOGLOBIN 10.5 gm/dL (12.0-15.0); LYMPHOCYTES 19.2 %; MCH 31.4 pg (26.0-34.0); MCHC 34.3 g/dL (28.0-37.0); MCV 91.6 fL (80.0-100.0); MONOCYTES 8.5 %; MPV 8.7 fl. (7.2-11.1); NUCLEATED RBCS 0 /100WBC; PLATELET COUNT* 233 thou/uL (150-400); POLYS 67.7 %; RBC 3.34 mil/uL (4.20-5.00); RDW-CV 12.3 % (10.5-14.5); WBC 11.1 thou/uL (4.0-11.0)
[2020-07-26 05:19] LABS: CREATININE 3.2 mg/dL (0.6-1.3); POTASSIUM 4.1 mmol/L (3.5-5.1)
--- NOTE | 2020-07-26 06:00 | NUR ---
SLEPT WELL TONIGHT. INDEPENDENT BRP WITH STEADY GAIT. NO CHANGE IN ASSESSMENT. TELEMETRY CONT TO SHOW SR. HS GOALS OF REST AND SAFETY ACHIEVED. HOURLY ROUNDING OBSERVED.
--- NOTE | 2020-07-26 07:05 | NUR ---
CHANGE OF SHIFT REPORT GIVEN PATIENT SEEN AT BEDSIDE, IN BED ASLEEP ASSUMED PATIENT CARE
[2020-07-26 08:00] VITALS: BP 157/67
[2020-07-26] MEDS ORDERED: PROCARDIA XL30 MG PO (10:22)
[2020-07-26] MEDS ORDERED: AUGMENTIN 875-1 EACH PO (10:25)
[2020-07-26 12:25] VITALS: BP 156/74
[2020-07-26 13:46] VITALS: BP 156/74
--- NOTE | 2020-07-26 14:15 | NUR ---
PATIENT DISCHARGED TO HOME DISCHARGE INSTRUCTIONS GIVEN AND ACKNOWLEDGED IV AND HEART MONITOR REMOVED PERSONAL BELONGINGS RETURNED PATIENT ASSISTED OUT VIA GOOD CONDITION TO WAITING CAR
== END 2020-07-26 14:15 | disposition home or self-care (01) | DRG 286 ==
LOC: M.ERS 12:53 → M.TBA-ER 14:33 → M.2W 14:33
PROVIDERS: Emergency Medicine Emergency Medical Services; Internal Medicine; Internal Medicine Cardiovascular Disease; ADMIT Internal Medicine; ATTEND Internal Medicine
PROC: 0W9B3ZZ Drainage of Left Pleural Cavity, Percutaneous Approach (ICD-10-PCS; principal; 2020-07-24)
PROC: 4A023N6 Measurement of Cardiac Sampling and Pressure, Right Heart, Percutaneous Approach (ICD-10-PCS; principal; 2020-07-24)
DX: I13.0 Hypertensive heart and chronic kidney disease with heart failure and stage 1 through stage 4 chronic kidney disease, or unspecified chronic kidney disease (principal); I50.33 Acute on chronic diastolic (congestive) heart failure; J96.01 Acute respiratory failure with hypoxia; I16.1 Hypertensive emergency; N18.4 Chronic kidney disease, stage 4 (severe); J91.8 Pleural effusion in other conditions classified elsewhere; J44.9 Chronic obstructive pulmonary disease, unspecified; M79.7 Fibromyalgia; E11.40 Type 2 diabetes mellitus with diabetic neuropathy, unspecified; E11.22 Type 2 diabetes mellitus with diabetic chronic kidney disease; F17.210 Nicotine dependence, cigarettes, uncomplicated; Z20.828 Contact with and (suspected) exposure to other viral communicable diseases; Z85.41 Personal history of malignant neoplasm of cervix uteri; Z89.429 Acquired absence of other toe(s), unspecified side; Z79.4 Long term (current) use of insulin; Z79.899 Other long term (current) drug therapy; Z88.8 Allergy status to other drugs, medicaments and biological substances; Z86.73 Personal history of transient ischemic attack (TIA), and cerebral infarction without residual deficits

== ENCOUNTER → 2020-08-07 | Outpatient (CLI) | payer OTHER ==
[~2020-08-07] MED LIST changes: +ASPIRIN325 PO; +AUGMENTIN 875-1 EACH PO; +BROVANA15 MCG/2 M INH; +GLIPIZIDE 10 MG10 MG PO; +MITIGARE0.6 MG PO; +PROCARDIA XL30 MG PO; +TRELEGY ELLIPT1 EACH IH; +TRESIBA FL100 UNIT/1 SUBQ; +ULTRAM 50MG TAB50 MG PO; +VITAMIN B-121000 MC2 SL
[2020-08-07 15:41] LABS: CREATININE 2.8 mg/dL (0.6-1.3); POTASSIUM 4.7 mmol/L (3.5-5.1)
== END ==
LOC: M.LAB 14:41
PROVIDERS: ATTEND Internal Medicine Critical Care Medicine
DX: J90 Pleural effusion, not elsewhere classified (principal); N18.9 Chronic kidney disease, unspecified

== ENCOUNTER 2020-08-11 10:46 | Inpatient (IN) | payer OTHER ==
[~2020-08-11] VITALS: Ht 172.7 cm; Wt 122.9 kg
[~2020-08-11 10:46] MED LIST changes: -ASPIRIN325 PO; -BROVANA15 MCG/2 M INH; -MITIGARE0.6 MG PO; -VITAMIN B-121000 MC2 SL
[2020-08-11 10:51] VITALS: BP 172/87
[2020-08-11] MEDS ORDERED: ASA81BEC PO (10:59)
[2020-08-11] MEDS ORDERED: CARVEDILOL25 MG PO (11:00)
[2020-08-11] MEDS ORDERED: MITIGARE0.6 MG PO (11:01)
[2020-08-11] MEDS ORDERED: TRAMADOL 50 MG50 MG PO (11:02)
[2020-08-11] MEDS ORDERED: VITAMIN B-121000 MC2 SL (11:02)
[2020-08-11 11:20] LABS: ABSOLUTE BASOPHILS 0.1 thou/uL (0.0-0.2); ABSOLUTE EOSINOPHILS 0.3 thou/uL (0.0-0.7); ABSOLUTE LYMPHOCYTES 1.7 thou/uL (0.8-5.3); ABSOLUTE MONOCYTES 0.9 thou/uL (0.0-1.2); ABSOLUTE NEUTROPHILS 7.9 thou/uL (1.6-8.1); BASOPHILS 0.9 %; EOSINOPHILS 2.7 %; HEMATOCRIT 30.2 % (37.0-47.0); HEMOGLOBIN 10.5 gm/dL (12.0-15.0); LYMPHOCYTES 15.9 %; MCH 31.7 pg (26.0-34.0); MCHC 34.9 g/dL (28.0-37.0); MCV 90.8 fL (80.0-100.0); MPV 8.2 fl. (7.2-11.1); NUCLEATED RBCS 0 /100WBC; PLATELET COUNT* 218 thou/uL (150-400); POLYS 72.5 %; RBC 3.33 mil/uL (4.20-5.00); RDW-CV 12.3 % (10.5-14.5); WBC 10.8 thou/uL (4.0-11.0)
[2020-08-11 11:29] LABS: CALCIUM 7.6 mg/dL (8.5-10.1); CREATININE 3.1 mg/dL (0.6-1.3); POTASSIUM 5.1 mmol/L (3.5-5.1)
[2020-08-11 11:31] LABS: APTT 25.2 Seconds (25.0-31.3); PROTIME 10.7 Seconds (9.20-11.50)
[2020-08-11 11:44] LABS: ALBUMIN 2.5 g/dL (3.4-5.0); CK-MB MASS 1.9 ng/mL (<0.5-3.6); MAGNESIUM 1.9 mg/dL (1.8-2.4); TOTAL BILIRUBIN 0.3 mg/dL (<0.1-1.0); TOTAL PROTEIN 6.7 g/dL (6.4-8.2)
[2020-08-11 14:00] VITALS: BP 154/81
--- NOTE | 2020-08-11 15:39 | EKG ---
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 08/11/20 1539 1100 1100 Rafat Clinton MD, [facility] /EPI
[2020-08-11 20:34] VITALS: BP 173/83
[2020-08-11] MEDS ORDERED: ASPIRIN325 PO (21:56)
[2020-08-12 00:31] VITALS: BP 145/79
[2020-08-12 04:58] VITALS: BP 139/76
[2020-08-12 05:36] LABS: CALCIUM 8.3 mg/dL (8.5-10.1); CREATININE 2.8 mg/dL (0.6-1.3)
[2020-08-12 07:30] VITALS: BP 159/79
[2020-08-12 08:33] LABS: CALCIUM 7.6 mg/dL (8.5-10.1); CREATININE 2.8 mg/dL (0.6-1.3); PHOSPHORUS* 3.6 mg/dL (2.5-4.9)
--- NOTE | 2020-08-12 09:05 | NUR ---
PT IS ABLE TO COMMUNICATE HER NEEDS TO STAFF EFFECTIVELY. CURRENT PAIN MEDICATION REGIMEN HAS BEEN ADEQUATE FOR CONTROLLING HER PAIN UP TILL 0700 THIS MORNING.
--- NOTE | 2020-08-12 10:44 | CON ---
[address] [address] CONSULTATION Name: ZELAYAJENIPaulo PADILLAA Room: [address] IN M.R.#: [id number] Admission: 08/11/20 Attend Phys: Regino Barrientos, Discharge: Date of : 73 Report #: [id number] THIS REPORT FOR: //name// cc: Karl Thomson MD, Dean L. MD ~ DATE OF SERVICE: 08/11/2020 CARDIOLOGY CONSULTATION HISTORY OF PRESENT ILLNESS: The patient is a 44-year-old white female who I was asked to see in the hospital today after she complained being short of breath. The patient has an extensive and complicated past medical history. She has a history of recurrent pleural effusion requiring previous thoracentesis. She had a previous stroke in 08/2019 affecting her vision. She has been a long history of smoking. She has chronic kidney disease and diabetes. She had a previous toe amputation in the past when she became infected. Recently, she has had recurrent admissions here to [place] with shortness of breath. She is felt to have diastolic dysfunction. She has been diuresed and has chronic kidney disease. She has been followed by Nephrology. Previous nuclear stress test showed no ischemia. Her echocardiogram in June showed ejection fraction of 55%. Dr. Hughes actually performed a right heart catheterization last month. He referred her to [facility]. The patient just saw my nurse practitioner last week. She was seen by [facility] last week. Because of more shortness of breath, she finally came to the hospital today and admitted for further evaluation and treatment. PAST MEDICAL HISTORY: Otherwise significant for toe amputation following an infection and removal of an ovarian cyst. She has a history of diabetes and hypertension. CURRENT MEDICATIONS: Consist of aspirin since the stroke, Bumex, Wellbutrin, carvedilol, Neurontin, insulin, and Protonix. ALLERGIES: SHE HAS A PREVIOUS INTOLERANCE TO METFORMIN. FAMILY HISTORY: Her grandfather, hypertension. SOCIAL HISTORY: She is single, lives with a boyfriend here in [place]. 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 She smoked a pack of cigarettes a day, now half pack of cigarettes a day. No alcohol abuse. REVIEW OF SYSTEMS: She has no history of liver disease. She had previous cervical cancer. No chronic skin condition. No psychiatric illness. [place] [address] CONSULTATION Name: JENI ZELAYA ALBINA Room: [address]#: [id number] Admission: 08/11/20 Attend Phys: Regino Barrientos, Discharge: Date of : 73 Report #: [id number] PHYSICAL EXAMINATION: GENERAL: Revealed a young female, lying in bed. She appeared in no distress. VITAL SIGNS: Blood pressure 150/80, pulse is 80, she is afebrile. HEENT: She was anicteric. Conjunctivae pink. Mucous membranes moist. NECK: Veins do not appear distended. No carotid bruits. Neck supple. CHEST: Clear to auscultation. CARDIOVASCULAR: Regular rate and rhythm without murmur. ABDOMEN: Obese. EXTREMITIES: Had no pitting edema. Dorsalis pedis pulse 1+ bilaterally. SKIN: Cool and dry. NEUROLOGIC: Nonfocal. RADIOLOGICAL DATA: ECG shows a sinus rhythm, no ST or T-wave changes. Her previous workup included carotid Doppler study a year ago showed no significant stenosis. Nuclear stress test last month showed no ischemia. CT scan of the chest a year ago showed no pulmonary embolus. Lower extremity Doppler study showed no significant PAD. Her x-rays, she had a portable chest x-ray in the Emergency Room this morning that showed normal heart size, left effusion, some atelectasis. LABORATORY DATA: Sodium 133, BUN 47, creatinine is 3.1, and glucose 281. Troponin 0.06. BNP 6791. White blood cell count 10.8, and hemoglobin 10.5, it was 10.5 a year ago. IMPRESSION AND RECOMMENDATIONS: 1. Acute on chronic diastolic heart failure. Recommend Bumex as needed. 2. Recurrent pleural effusion. The patient might require thoracentesis and pleurodesis. 3. Diabetes. 4. Hypertension. The patient is on a beta monet. 5. Previous stroke. The patient is on aspirin a day. 6. Chronic obstructive pulmonary disease. 7. Tobacco abuse. 8. Chronic kidney disease. The patient followed by Nephrology. <ELECTRONICALLY SIGNED> By: Rafat Clinton MD, [facility] 08/12/20 1044 [id number] [id number] Clinton MD, FAC /nt
[2020-08-12 12:00] VITALS: BP 143/70
--- NOTE | 2020-08-12 13:31 | NUR ---
Pt is A&O. Resides at home with SO. Known to this CM from previous hospital stays. Pt has a neb, no other DME. Hx of [facility]. No hx of SNF. Goal is home at dc. Renal signed off. Anticipate dc tomorrow, no needs anticipated.
[2020-08-12 16:00] VITALS: BP 154/85
[2020-08-12 20:30] VITALS: BP 167/77
[2020-08-13 07:11] LABS: HEMATOCRIT 28.3 % (37.0-47.0); HEMOGLOBIN 9.9 gm/dL (12.0-15.0); MCH 31.8 pg (26.0-34.0); MCHC 35.1 g/dL (28.0-37.0); MCV 90.6 fL (80.0-100.0); MPV 7.8 fl. (7.2-11.1); RBC 3.13 mil/uL (4.20-5.00); RDW-CV 12.3 % (10.5-14.5); WBC 8.4 thou/uL (4.0-11.0)
[2020-08-13 07:29] LABS: ALBUMIN 2.2 g/dL (3.4-5.0); CALCIUM 7.6 mg/dL (8.5-10.1); CREATININE 2.8 mg/dL (0.6-1.3); MAGNESIUM 1.8 mg/dL (1.8-2.4); POTASSIUM 4.4 mmol/L (3.5-5.1); TOTAL BILIRUBIN 0.3 mg/dL (<0.1-1.0); TOTAL PROTEIN 6.1 g/dL (6.4-8.2)
[2020-08-13 08:00] VITALS: BP 148/87
--- NOTE | 2020-08-13 08:36 | NUR ---
PATIENT HAS RESTED WELL THROUGHOUT THE NIGHT. VSS ON RA. NO C/O OF PAIN AND NO C/O SOA. ASSESSMENT CHARTED. PATIENT HAS REMAINED NPO SINCE MIDNIGHT D/T SCHEDULED THOROCENTESIS TODAY. PATIENT UP AD-MALOU. IV IN RIGHT WRIST-SL. MEDICATIONS GIVEN ORDERED AND CHARTED. PATIENT INSTRUCTED TO USE CALL LIGHT WHEN NEEDING ASSISTANCE. HOURLY ROUNDS MADE. WILL CONTINUE WITH PLAN OF CARE AND NURSING TO MONITOR.
[2020-08-13 12:48] VITALS: BP 150/67
--- NOTE | 2020-08-13 12:58 | NUR ---
Pt to have thora today. Pt wanting to dc post thora, Pt has an outpt renal appt tomorrow that she wants to be able to go to. No needs
[2020-08-13 15:37] LABS: BF RBC 6337 /mm3; TOTAL CELL COUNT 1308 /mm3
[2020-08-13 15:47] LABS: CLARITY HAZY; TOTAL VOLUME 1610 ml
[2020-08-13 16:15] VITALS: BP 164/76
[2020-08-13 16:16] LABS: BF EOSINOPHILS 1 %; BF LYMPHOCYTES 95 %; BF MONOCYTES 4 %
[2020-08-13 16:17] LABS: SOURCE PLEURAL FLUID
[2020-08-13 16:18] LABS: BF POLYS 0 %
[2020-08-13] MEDS ORDERED: BROVANA15 MCG/2 M INH (18:03)
[2020-08-13] MEDS ORDERED: CARVEDILOL25 MG PO (18:05)
[2020-08-13] MEDS ORDERED: AUGMENTIN 875-1 EACH PO (18:07)
[2020-08-13 18:31] VITALS: BP 164/76
[2020-08-13 22:09] LABS: IgA 379 mg/dL (87-352); IgG 945 mg/dL (586-1602); IgM 95 mg/dL (26-217)
--- NOTE | 2020-08-14 09:28 | CON ---
[address] [address] CONSULTATION Name: JENI ZELAYA Room: [address] IN M.R.#: [id number] Admission: 08/11/20 Attend Phys: Regino Barrientos, Discharge: 08/13/20 Date of : 73 Report #: [id number] THIS REPORT FOR: cc: Karl Thomson MD, Dean L. MD ~ Jane Mosqueda MD DATE OF SERVICE: 08/12/2020 NEPHROLOGY CONSULTATION CONSULTING PHYSICIAN: Dr. Barrientos. REASON FOR NEPHROLOGY CONSULTATION: Chronic kidney disease stage 4. REASON FOR ADMISSION: Shortness of breath. HISTORY OF PRESENT ILLNESS: This is a 44-year-old female with history of diabetic kidney disease, baseline creatinine 2.8-3, chronic kidney disease stage 4, hypertension, chronic diastolic dysfunction, came in with lower extremity swelling and increasing shortness of breath. She was found to have left-sided pleural effusion, which she has had before and she has needed thoracentesis x 2 in a recent hospitalization. Her breathing has improved. She was transitioned from Bumex 2 mg oral daily to Bumex 1 mg IV b.i.d. over here. Her swelling is much better. She has an appointment to see us in our office on . She says she has been following a fluid restriction 1.5 liters a day, but it is hard for her to restrict her salt, although she has been trying her best. She says she has gained about 5-6 pounds in the last 10 days. ALLERGIES: METFORMIN. REVIEW OF SYSTEMS: As mentioned in history of present illness, otherwise 10-point review of systems are negative. PAST MEDICAL AND SURGICAL HISTORY: Includes non-insulin dependent diabetes mellitus. She has diabetic kidney disease with baseline creatinine of 2.8-3, cervical cancer, chronic diastolic congestive heart failure, ejection fraction 50-55% in June with grade 1 diastolic dysfunction, amputation of left foot fourth toe, polycystic ovarian disease with cyst removal, COPD, pulmonary embolism, CVA in 08/2019, fibromyalgia. FAMILY HISTORY: Hypertension. SOCIAL HISTORY: Smokes every day. Does not use recreational [place] [address] CONSULTATION Name: JENI ZELAYA ALBINA Room: [address]#: [id number] Admission: 08/11/20 Attend Phys: Regino Barrientos, Discharge: 08/13/20 Date of : 73 Report #: [id number] HOME MEDICATIONS: Include Bumex 2 mg daily. She was alternating between two 1 mg and 2 mg once a day and then 1 mg the next day, but for the last 4 or 5 days, she was taking 2 mg once a day. She is taking gabapentin, nifedipine. She is taking fluticasone, insulin, degludec which is Tarceva, aspirin 81, carvedilol, colchicine, tramadol, cyanocobalamin, albuterol p.r.n., bupropion, insulin lispro, pantoprazole. PHYSICAL EXAMINATION: VITAL SIGNS: Blood pressure is 145/79, temperature 36.5, pulse rate is 79, respiratory rate is 16, her pulse ox is on room air 100%. GENERAL: She is awake, alert, oriented x 3. HEAD AND EYES: Atraumatic and normocephalic. Conjunctivae normal. EARS, NOSE, AND THROAT: Normal ears and nose. Mucous membranes are moist. NECK: There is no JVD. CHEST: Bilateral diminished breath sounds posteriorly. No crackles. CARDIOVASCULAR: S1, S2 normal. No murmurs or rubs. ABDOMEN: Soft, nondistended, nontender. Bowel sounds are present. EXTREMITIES: Lower extremities, there is no lower extremity edema. NEUROLOGICAL FUNCTION: Grossly internal. PSYCHIATRIC: Mood and affect seem to be normal. LABORATORY DATA: Sodium is 135, potassium is 4.0, CO2 is 24, BUN 42, creatinine is 2.8, hemoglobin 10.2. Other labs are reviewed. IMAGING: Chest x-ray was reviewed. ASSESSMENT: 1. Chronic kidney disease stage 4, diabetic kidney disease, baseline creatinine 2.8-3 and creatinine is at baseline. 2. The patient presented with fluid overload and left-sided pleural effusion. 3. Chronic diastolic congestive heart failure, currently looks euvolemic with ejection fraction of 50-55% in June with grade 1 diastolic dysfunction. 4. Hypertension. Blood pressure seems to be controlled. 5. Chronic obstructive pulmonary disease, still smokes. 6. Insulin-dependent diabetes treatment as per primary team. PLAN: 1. Left sided thoracentesis, we will defer to primary team. It does not look like there is an acute need for thoracentesis. 2. I am going to change her Bumex IV to oral. We will put her on Bumex 2 mg in the morning and 1 mg in the afternoon with a 2 g sodium diet, 1.5 liters of fluid restriction a day. 3. We will repeat the urine protein creatinine ratio. [place] [address] CONSULTATION Name: JENI ZELAYA Room: [facility] IN [facility]#: [id number] Admission: 08/11/20 Attend Phys: Regino Barrientos, Discharge: 08/13/20 Date of : 73 Report #: [id number] needed for her appointment with us on . 4. Nothing else to add from a nephrology standpoint right now. Okay to discharge from nephrology standpoint today and follow up in our office, which is already scheduled on . Thank you for this consultation. Please call me with any questions. <ELECTRONICALLY SIGNED> By: Jane Mosqueda MD 08/14/20 0928 0810 [id number] Mosqueda MD /nt
[2020-08-14 11:07] LABS: BODY FLUID LDH 115 IU/L (())
--- NOTE | 2020-08-14 12:38 | CON ---
[address] [address] CONSULTATION Name: JENI ZELAYA Room: [address] IN M.R.#: [id number] Admission: 08/11/20 Attend Phys: Regino Barrientos, Discharge: 08/13/20 Date of : 73 Report #: [id number] THIS REPORT FOR: cc: Karl Thomson MD, Dean L. MD ~ Ruben De Dios MD DATE OF SERVICE: 08/12/2020 REQUESTING PHYSICIAN: Consult has been requested by Dr. Barrientos. INDICATION FOR CONSULTATION: Pleural effusion. HISTORY OF PRESENT ILLNESS: This is a 44-year-old female, she is an active smoker. I recently saw her in the office. The patient does have a history of congestive heart failure secondary to diastolic dysfunction. She does not have significant pulmonary hypertension and there was right heart catheterization, this was performed in June, which shows a pulmonary artery systolic of 37. Her baseline creatinine is normal. She developed acute renal failure in June, which is now becoming chronic. The patient still has elevation in creatinine. The patient also has had a recurrent pleural effusion since at least 09/2019. I do have limited analysis from previous thoracentesis available and it based on previous analysis appears to be a transudate. The patient has now presented again with increasing shortness of breath, also has had swelling of lower extremities, has had a cough with some timmons sputum, has been wheezing as well. The patient does have disturbed sleep at night as well as sleepiness during the day. These complaints are longstanding. She is not having calf pain. She is not having heartburn. REVIEW OF SYSTEMS: The patient answered to the negative for 12 questions for review of systems except as mentioned above. PAST MEDICAL HISTORY: Congestive heart failure secondary to diastolic dysfunction, recurrent pleural effusion as above, COPD, acute renal failure in June, which has now become chronic renal failure, congestive heart failure with diastolic dysfunction, toe amputation, cervical cancer, polycystic ovarian syndrome, the possibility of pulmonary emboli in the past, fibromyalgia, stroke in 08/2019. SOCIAL HISTORY: She is an active smoker, still half a pack a day, has been smoking for several decades. No known history of heavy alcohol use [place] [address] CONSULTATION Name: JENI ZELAYA ALBINA Room: [address]#: [id number] Admission: 08/11/20 Attend Phys: Regino Barrientos, Discharge: 08/13/20 Date of : 73 Report #: [id number] CURRENT MEDICATIONS: List in [employer] reviewed. HOME MEDICATIONS: List also in [employer] reviewed. FAMILY HISTORY: Hypertension. PHYSICAL EXAMINATION: GENERAL: She is alert, awake and oriented. VITAL SIGNS: In the record, these are reviewed. HEENT: Head is normocephalic and atraumatic. She has a narrow airway. There is no throat erythema. There is no thrush in her throat. NECK: Does not show raised JVP, asymmetry, mass or lymph nodes. CHEST: Symmetrical expansion on inspection and palpation. On auscultation, breath sounds are decreased at the left lung base. HEART: Regular. There is no murmur. ABDOMEN: Soft and nontender. EXTREMITIES: Lower extremities show 2+ edema. No calf tenderness. SKIN: Dry and intact. NEUROLOGICAL: Moves all extremities bilaterally equally and spontaneously with no focal deficit identified. LABORATORY DATA: The patient's lab work as well as CT chest are in [place] and these are reviewed. ASSESSMENT AND PLAN: 1. Recurrent pleural effusion/pulmonary infiltrate. CT chest is reviewed. She has had this recurrent pleural effusion at least in 09/2019. On previous thoracentesis, it appeared to be a transudate; however, it is therefore unusual than it will be on the left side. I see some infiltrative changes underneath as well. Therefore, I would like to go ahead and repeat a thoracentesis and then repeat a CT chest without contrast again to evaluate the underlying lung. The patient did receive broad-spectrum antibiotics including Zosyn in July. Therefore, I did not order more antibiotics now. We will do a sputum culture. We will do a nasal swab for methicillin-resistant Staphylococcus aureus. We will review the repeat CT and then we will decide in this regard. If the pleural effusion again is transudative, then we will primarily plan to only watch it and keep the patient as close to euvolemic state as is possible considering that she has renal failure. If the pleural effusion continues to recur or increases in size, then in that case, pleurodesis may need to be considered later if the same is considered. Then considering that there are underlying infiltrates and the etiology is not fully established, a Cardiothoracic Surgery consult for a pleural/surgical lung biopsy before proceeding to pleurodesis [place] [address] CONSULTATION Name: JENI ZELAYA Room: [address] M.R.#: [id number] Admission: 08/11/20 Attend Phys: Regino Barrientos, Discharge: 08/13/20 Date of : 73 Report #: [id number] 2. Chronic obstructive pulmonary disease. We will treat with nebulized bronchodilators and steroids if she uses ____ at home. Plan to evaluate further after PFTs as an outpatient. 3. Hypersomnia, appears to have underlying obstructive sleep apnea. We will do a nocturnal pulse oximetry tonight if hypoxemic. We will set her up with oxygen before discharge. Plan to do an outpatient sleep study. 4. Chronic diastolic congestive heart failure/acute renal failure, becoming chronic renal failure. Management deferred to other services. 5. Pedal edema. Also suggest obtaining venous Dopplers. Last D-dimer was elevated. 6. Active smoker. Smoking cessation is strongly recommended. 7. Anxiety related to thoracentesis. We will give her 1 dose of Xanax prior to the thoracentesis. 8. Deep vein thrombosis prophylaxis. She is on Lovenox. Thanks for this consultation. <ELECTRONICALLY SIGNED> By: Ruben De Dios MD 08/14/20 1238 1556 [id number] De Dios MD /nt
== END 2020-08-13 18:38 | disposition home or self-care (01) | DRG 291 ==
LOC: M.ERS 10:46 → M.2W 12:19 → M.TBA-ER 12:19 → M.2W 14:06
PROVIDERS: Family Medicine; Internal Medicine; Internal Medicine Cardiovascular Disease; Internal Medicine Critical Care Medicine; ADMIT Family Medicine; ATTEND Family Medicine
PROC: 0W9B30Z Drainage of Left Pleural Cavity with Drainage Device, Percutaneous Approach (ICD-10-PCS; principal; 2020-08-13)
DX: I13.0 Hypertensive heart and chronic kidney disease with heart failure and stage 1 through stage 4 chronic kidney disease, or unspecified chronic kidney disease (principal); I50.33 Acute on chronic diastolic (congestive) heart failure; J96.01 Acute respiratory failure with hypoxia; J18.9 Pneumonia, unspecified organism; E43 Unspecified severe protein-calorie malnutrition; N18.4 Chronic kidney disease, stage 4 (severe); J44.1 Chronic obstructive pulmonary disease with (acute) exacerbation; J44.0 Chronic obstructive pulmonary disease with (acute) lower respiratory infection; Z68.41 Body mass index [BMI] 40.0-44.9, adult; N17.9 Acute kidney failure, unspecified; J91.8 Pleural effusion in other conditions classified elsewhere; J44.9 Chronic obstructive pulmonary disease, unspecified; E11.22 Type 2 diabetes mellitus with diabetic chronic kidney disease; M79.7 Fibromyalgia; E66.01 Morbid (severe) obesity due to excess calories; G47.10 Hypersomnia, unspecified; F17.210 Nicotine dependence, cigarettes, uncomplicated; Z20.828 Contact with and (suspected) exposure to other viral communicable diseases; Z86.711 Personal history of pulmonary embolism; Z88.8 Allergy status to other drugs, medicaments and biological substances; Z85.41 Personal history of malignant neoplasm of cervix uteri; Z89.422 Acquired absence of other left toe(s); Z86.73 Personal history of transient ischemic attack (TIA), and cerebral infarction without residual deficits; Z79.4 Long term (current) use of insulin; Z79.899 Other long term (current) drug therapy; Z79.82 Long term (current) use of aspirin

== ENCOUNTER → 2020-08-22 | Outpatient (CLI) | payer OTHER ==
[~2020-08-22] MED LIST changes: +ASPIRIN325 PO; +BROVANA15 MCG/2 M INH; +MITIGARE0.6 MG PO; +VITAMIN B-121000 MC2 SL
[2020-08-22 13:21] LABS: CALCIUM 8.4 mg/dL (8.5-10.1); CREATININE 3.3 mg/dL (0.6-1.3); POTASSIUM 4.6 mmol/L (3.5-5.1)
== END ==
LOC: M.RAD 12:14
PROVIDERS: ATTEND Nurse Practitioner
DX: J90 Pleural effusion, not elsewhere classified (principal); I50.31 Acute diastolic (congestive) heart failure; J98.4 Other disorders of lung

== ENCOUNTER → 2020-10-31 | Outpatient (CLI) | payer OTHER ==
--- NOTE | 2020-11-07 12:10 | PF ---
[address] [address] PULMONARY FUNCTION REPORT Name: JENI ZELAYA Room: [facility]#: [id number] Admission: 10/31/20 Attend Phys: Ruben De Dios MD Discharge: Date of : 73 Report #: [id number] THIS REPORT FOR: cc: Karl Thomson MD, Dean L. MD ~ Ruben De Dios MD DATE OF SERVICE: 11/02/2020 The FEV1/FVC ratio is decreased to 67% with an FVC decreased to 75% and FEV1 decreased to 63%. The DBD83-75 is also decreased to 31%. After the administration of a bronchodilator, there is no significant increase in any of these values. The patient's FEV1 is noted to be 2.08 liters, this does not increase after the administration of a bronchodilator. The total lung capacity is normal at 80% with a residual volume mildly decreased to 73% with a DLCO as adjusted for hemoglobin is decreased to 42%. IMPRESSION: 1. Moderate obstruction without evidence of reversibility. 2. Isolated mild decrease in residual volume, this will likely a normal variant. Mild restriction can also give this picture but appears to be less likely. 3. DLCO as adjusted for hemoglobin decreased to 42%. <ELECTRONICALLY SIGNED> By: Ruben De Dios MD 11/07/20 1210 1925 MD toney Oliver
== END ==
LOC: M.PUL 10:51
PROVIDERS: ATTEND Internal Medicine Critical Care Medicine
DX: J44.9 Chronic obstructive pulmonary disease, unspecified (principal)